=== PATIENT | male | born 1935 | race Caucasian/White ===

== ENCOUNTER → 2016-07-25 | Outpatient (CLI) | payer OTHER ==
[2016-07-25 09:59] LABS: MEAN CELL VOLUME 92.6 fL (80-100); MEAN CORPUSCULAR HEMOGLOBIN 31.3 pg (25-34); MEAN CORPUSCULAR HGB CONC 33.8 g/dl (32-36); MEAN PLATELET VOLUME 10.9 fL (7.4-10.4); PLATELET COUNT 191 K/uL (130-400); RED BLOOD COUNT 4.32 M/uL (4.7-6.1); WHITE BLOOD COUNT 7.16 K/uL (4.8-10.8)
[2016-07-25 10:49] LABS: BLOOD UREA NITROGEN 24 mg/dl (7-18); BUN/CREATININE RATIO 15.7 (10-20); CALCIUM 9.2 mg/dl (8.5-10.1); CARBON DIOXIDE 29 mmol/L (21-32); CHLORIDE 104 mmol/L (98-107); GLUCOSE 104 mg/dl (70-99); POTASSIUM 4.7 mmol/L (3.5-5.1); SODIUM 140 mmol/L (136-145)
== END | disposition home or self-care (01) ==
LOC: C.LAB 09:16
PROVIDERS: ATTEND Internal Medicine
DX: N18.3 Chronic kidney disease, stage 3 (moderate) (principal)

== ENCOUNTER → 2016-08-08 | Outpatient (CLI) | payer OTHER ==
--- NOTE | 2016-08-08 12:22 | DIAGNOSTIC IMAGING REPORT ---
RENAL ULTRASOUND HISTORY: CHRONIC RENAL INSUFFICIENCY STAGE 3 COMPARISON: Abdominal aortic ultrasound 01/09/2016. FINDINGS: Right kidney: 11.0 cm. No hydronephrosis. There is increased cortical echogenicity. Mild cortical thinning/lobulation. There are few cysts with the largest measuring 1.8 cm. Left kidney: 11.4 cm. No hydronephrosis. There is increased cortical echogenicity. Moderate cortical thinning/lobulation. There are few cysts with the largest measuring 4.6 cm. A 4.1 cm cyst within the upper pole the left kidney demonstrates internal echoes. Bladder: No bladder wall thickening. The bilateral ureteral jets were identified. No significant change in the 4.2 cm distal abdominal aortic aneurysm. IMPRESSION: 1. No hydronephrosis. 2. Increased cortical echogenicity bilaterally suggestive of medical renal disease. 3. Bilateral renal cysts the majority of which appear to be simple. A 4.1 cm cyst within the upper pole of the left kidney demonstrates internal echoes. Six-month to one year ultrasound follow-up is recommended to ensure stability. 4. No significant change in the 4.2 cm distal abdominal aortic aneurysm. Electronically signed by: Sabino Casanova M.D. 08/08/2016 12:21 PM Dictated Date/Time: 08/08/2016 12:17 PM
== END | disposition home or self-care (01) ==
LOC: C.ULTR 10:46
PROVIDERS: ATTEND Internal Medicine
DX: N18.3 Chronic kidney disease, stage 3 (moderate) (principal)

== ENCOUNTER → 2016-11-26 | Outpatient (CLI) | payer OTHER ==
[2016-11-26 09:44] LABS: ESTIMATED AVERAGE GLUCOSE 120 mg/dl; HA1C FLAG Normal (Normal)
[2016-11-26 09:52] LABS: BLOOD UREA NITROGEN 25 mg/dl (7-18); BUN/CREATININE RATIO 15.8 (10-20); CARBON DIOXIDE 27 mmol/L (21-32); CHLORIDE 108 mmol/L (98-107); CHOLESTEROL 132 mg/dl (0-200); GLUCOSE 114 mg/dl (70-99); POTASSIUM 4.6 mmol/L (3.5-5.1); SODIUM 142 mmol/L (136-145); TRIGLYCERIDES 100 mg/dl (0-150); VERY LOW DENSITY LIPOPROT CALC 20 mg/dl
[2016-11-26 09:54] LABS: CALCIUM 9.2 mg/dl (8.5-10.1)
[2016-11-26 10:04] LABS: CHOLESTEROL/HDL RATIO 3.4; FERRITIN 72.9 ng/ml (8.0-388.0); HDL CHOLESTEROL 39 mg/dl; LDL CHOLESTEROL CALCULATED 73 mg/dl; PHOSPHORUS 2.7 mg/dl (2.5-4.9); TOTAL IRON BINDING CAPACITY 320 mcg/dl (250-450)
--- NOTE | 2016-12-03 14:27 | CODING QUERY MEDICAL NECESSITY ---
CQSUPPORTING DIAGNOSIS NEEDED A supporting diagnosis is required for the test/procedure performed on this patient in order for us to be reimbursed by the patient's insurance. Please provide a supporting diagnosis for the following test/procedure listed below next to the test name along with your signature. *If there is no additional diagnosis for this patient that would support the following test/procedure please document that below next to the test/procedure. Test(s)/Procedure(s) that require a supporting diagnosis: CHICHI 11/26/16 GLYCATED HEMOGLOBIN TEST Provider Signature: Date: Thank you Gretta Pope [facility] Information Management Once completed, please kindly fax back to [phone] For questions please call [phone]
== END | disposition home or self-care (01) ==
LOC: C.LAB 08:41
PROVIDERS: ATTEND Internal Medicine
DX: N18.3 Chronic kidney disease, stage 3 (moderate) (principal); D64.9 Anemia, unspecified; E03.9 Hypothyroidism, unspecified; E11.65 Type 2 diabetes mellitus with hyperglycemia

== ENCOUNTER → 2017-03-31 | Outpatient (CLI) | payer OTHER ==
[2017-03-31 12:36] LABS: BLOOD UREA NITROGEN 16 mg/dl (7-18); BUN/CREATININE RATIO 10.8 (10-20); CALCIUM 9.6 mg/dl (8.5-10.1); CARBON DIOXIDE 27 mmol/L (21-32); CHLORIDE 105 mmol/L (98-107); GLUCOSE 114 mg/dl (70-99); POTASSIUM 4.5 mmol/L (3.5-5.1); SODIUM 139 mmol/L (136-145)
== END | disposition home or self-care (01) ==
LOC: C.LAB 11:01
PROVIDERS: ATTEND Internal Medicine
DX: N18.3 Chronic kidney disease, stage 3 (moderate) (principal)

== ENCOUNTER → 2017-04-09 | Outpatient (CLI) | payer OTHER | END | disposition home or self-care (01) | LOC: C.LAB 10:18 | PROVIDERS: ATTEND Internal Medicine | DX: E03.8 Other specified hypothyroidism (principal) ==

== ENCOUNTER → 2017-08-04 | Outpatient (CLI) | payer OTHER ==
--- NOTE | 2017-08-04 12:03 | DIAGNOSTIC IMAGING REPORT ---
RETROPERITONEAL COMPLETE CLINICAL HISTORY: 1 YR F/U - RECHECK KIDNEY CYST COMPARISON STUDY: Renal ultrasound August 08, 2016. FINDINGS: The right kidney measures 10.6 cm in maximal dimension and the left measures 10.9 cm. There is moderate renal cortical thinning. Several bilateral renal cysts are noted. These represent simple cysts. There are no suspicious renal lesions by sonography. The cysts measure up to 4.4 cm. Both ureteral jets were identified. There was no hydronephrosis. Note is again made of an infrarenal paraortic aneurysm which measures approximately 3.5 cm. This has not significantly changed. IMPRESSION: 1. No significant change in multiple bilateral renal cysts. No suspicious renal lesions by sonography. 2. No change in a 3.5 cm infrarenal abdominal aortic aneurysm. Electronically signed by: Daniel St M.D. 08/04/2017 12:02 PM Dictated Date/Time: 08/04/2017 11:59 AM
== END | disposition home or self-care (01) ==
LOC: C.ULTR 10:43
PROVIDERS: ATTEND Internal Medicine
DX: N28.1 Cyst of kidney, acquired (principal); I71.4 Abdominal aortic aneurysm, without rupture

== ENCOUNTER → 2017-08-10 | Outpatient (CLI) | payer OTHER ==
[2017-08-10 09:48] LABS: HEMOGLOBIN A1C 5.9 % (4.5-5.6)
[2017-08-10 09:52] LABS: BLOOD UREA NITROGEN 25 mg/dl (7-18); CALCIUM 8.3 mg/dl (8.5-10.1); CARBON DIOXIDE 27 mmol/L (21-32); CHOLESTEROL 113 mg/dl (0-200); CREATININE 1.37 mg/dl (0.60-1.40); GLUCOSE 118 mg/dl (70-99); POTASSIUM 4.7 mmol/L (3.5-5.1); SODIUM 140 mmol/L (136-145)
[2017-08-10 09:55] LABS: LDL CHOLESTEROL CALCULATED 55 mg/dl
== END | disposition home or self-care (01) ==
LOC: C.LAB 08:23
PROVIDERS: ATTEND Internal Medicine
DX: E11.9 Type 2 diabetes mellitus without complications (principal); E78.5 Hyperlipidemia, unspecified

== ENCOUNTER 2020-06-28 17:54 | Inpatient (IN) ==
[2020-06-28 19:01] LABS: Basophils # (auto) 0.01 K/uL (0-0.2); Basophils % (auto) 0.1 %; Eosinophils # (auto) 0.14 K/uL (0-0.5); Eosinophils % (auto) 1.6 %; Hemoglobin 12.5 g/dL (14.0-18.0); Immature Granulocytes # (auto) 0.01 K/uL (0.00-0.02); Immature Granulocytes % (auto) 0.1 %; Lymphocytes # (auto) 1.47 K/uL (1.2-3.4); Lymphocytes % (auto) 17.2 %; Mean Corpuscular Hemoglobin 31.2 pg (25-34); Mean Corpuscular Hgb Conc 32.9 g/dL (32-36); Mean Corpuscular Volume 94.8 fL (80-100); Mean Platelet Volume 10.7 fL (7.4-10.4); Monocytes # (auto) 0.91 K/uL (0.11-0.59); Monocytes % (auto) 10.6 %; Neutrophils # (auto) 6.03 K/uL (1.4-6.5); Neutrophils % (auto) 70.4 %; Platelet Count 163 K/uL (130-400); RDW Coefficient of Variation 14.8 % (11.5-14.5); RDW Standard Deviation 51.7 fL (36.4-46.3); Red Blood Count 4.01 M/uL (4.7-6.1); White Blood Count 8.57 K/uL (4.8-10.8)
--- NOTE | 2020-06-28 19:02 | XRay Report ---
LEFT KNEE 2 VIEWS HISTORY: Left knee pain. fall COMPARISON: None. FINDINGS: There is no fracture or dislocation. No significant knee effusion. Moderate vascular calcif ications are noted. Significant anterior soft tissue swelling. Moderate cartilage space narrowing wit hin the medial compartment of the knee. No radiopaque foreign bodies. IMPRESSION: 1. No fracture or dislocation within the left knee. 2. Anterior soft tissue swelling. ACT 112: Negative or not required by law. Electronically signed by: Sabino Casanova M.D. 06/28/2020 7:01 PM
--- NOTE | 2020-06-28 19:03 | XRay Report ---
XR ankle LT min 3V routine CLINICAL HISTORY: fall. Left ankle pain. COMPARISON STUDY: None. FINDINGS: Diffuse soft tissue swelling. No fracture or dislocation. The ankle mortise is maintained. IMPRESSION: No fracture or dislocation within the left ankle. ACT 112: Negative or not required by law. Electronically signed by: Sabino Casanova M.D. 06/28/2020 7:02 PM
[2020-06-28] MEDS ORDERED: cefTRIAXone SODIUM 1,000 MG/50 ML BAG IV STA (19:06)
--- NOTE | 2020-06-28 19:14 | Emergency Department Note ---
Impression & Plan Cellulitis, Fall, Head injury, Contusion of knee, left, Elevated INR ED Provider Note NAME: CLAUDINE CUEVAS AGE: 84 SEX: M : 1935 ARRIVES VIA: Walk-In INFORMANT: Patient, ED PROVIDER(S): Chadd Contreras DO CHIEF COMPLAINT: Knee pain HPI: The patient is an 84-year-old male who does take blood thinners who presented to the emergency department because of left knee pain. The patient states that he fell out of bed yesterday morning. He struck his left knee and his left ankle. He also states that he struck his head and has a "lump" on the right side of his head as well as behind his left ear. He did not have a loss o f consciousness. He does not have any headache nausea or vomiting. He denies having any neck or chest pain. He does complain of left knee pain. He struck his left knee on the floor. The patient also complains of left ankle pain. He has been able to ambulate but with significant pain. He denies having any hip pain. The patient was not seen by his primary care physician. He has been putting triple antibiotic ointment on the area and cleaning it with Betadine but started noticing worsening swelling pain and blistering of the knee. For this reason he presented to the emergency department today. He denies having any fever. The patient states the pain is moderate at this time and worsens with any ambulation. ROS: See above HPI for pertinent positives & negatives. A total of 10 systems reviewed and were otherwise negative. PAST MEDICAL HISTORY: See Below PAST SURGICAL HISTORY: See Below FAMILY HISTORY: See Below SOCIAL HISTORY: See Below HOME MEDICATIONS: See Below ALLERGIES: See Below VITALS: See Below PHYSICAL EXAMINATION: GENERAL: Patient is awake alert in no acute distress patient is resting comfortably and showing no signs of anxiety EYES: The conjunctivae are clear. The pupils are round and reactive. EARS, NOSE, MOUTH AND THROAT: The nose is without any evidence of any deformity. Mucous membranes are moist. Tongue is midline. NECK: The neck is nontender and supple. RESPIRATORY: Normal respiratory effort is noted there is no evidence of wheezing rhonchi or rales CARDIOVASCULAR: Regular rate and rhythm noted there no murmurs rubs or gallops normal S1 normal S2. GASTROINTESTINAL: The abdomen is soft. Abdomen is nontender. MUSCULOSKELETAL/EXTREMITIES: There is significant ecchymosis and pretibial swelling on the left knee. Range of motion appears intact. There is no deformity. There is also significant blistering over the left knee with some oozing noted. There is significant erythema surrounding the area of ecchymosis. It extends into the left groin. SKIN: Pedal edema was noted bilaterally. Skin is warm and dry. Pulses are symmetric in both feet. NEUROLOGIC: Patient is awake alert and oriented x3. MEDICAL DECISION MAKING: The patient is an 84-year-old male who presented to the emergency department for left knee pain. The patient had a fall onto his left side yesterday morning out of his bed. He sustained a small abrasion to the knee. He states that he has been able to ambulate but over the course of the last 24 hours he has noticed worsening ecchymosis and swelling. Initially clean the area with Betadine but then put triple antibiotic ointment to the area. He was treated with IV antibiotics in the emergency department. X-ray did not reveal any gas in the joint or in the subcutaneous tissue. He was not found have any signs of fracture. Patient also had CT of the head and neck. Laboratory studies were reviewed with the patient. His INR was found to be supratherapeutic. Because of the patient's extent of cellulitis over the knee joint and into the left thigh I will discuss his case with the on-call [facility] hospitalist. Triage Nursing notes reviewed. Prior medical records reviewed Vital Signs: reviewed and remarkable for no significant abnormalities Differential diagnosis: Fracture, subluxation, dislocation, contusion, ligamentous injury, neurovascular, compartment syndrome, rhabdomyolysis, as well as other pathologies. ER treatment provided: See below Diagnostics interpreted by me: ECG: none Cardiac Monitoring: An order was placed for continuous cardiac monitoring. The monitor shows a rate of 88 bpm with atrial fibrillation rhythm. Laboratory studies: As stated above and show below. Imaging studies: See below Consultation(s): I discussed this case with Dr. Joseph. He will evaluate the patient in the emergency department. Past Med/Surg History Medical History Abnormal chest x-ray Allergic rhinitis COPD with emphysema Ex-smoker Hemoptysis ILD (interstitial lung disease) Morbid obesity Multiple pulmonary nodules Family History Other Cancer Social History Smoking Status: Former smoker Preferred Language: Maltese Feels Safe at Home: Yes Allergies Allergies Allergy/AdvReac Type Severity Reaction Status Date / Time No Known Allergies Allergy Verified 06/28/20 19:04 Home Meds Home Medications Medication Instructions Recorded Confirmed aspirin 81 mg tablet,delayed 81 mg PO QPM 12/08/19 06/28/20 release furosemide 20 mg tablet 20 mg PO QAM 12/08/19 06/28/20 nitroglycerin 0.4 mg sublingual 0.4 mg SL Q5M PRN 12/08/19 06/28/20 tablet quinapril 20 mg tablet 20 mg PO QPM 12/08/19 06/28/20 rosuvastatin 20 mg tablet 20 mg PO QPM 12/08/19 06/28/20 vit C 250 mg-E 200 unit-zinc 40 1 tab PO QPM cap 12/08/19 06/28/20 mg-copper 1 [id number]-dkfcch capsule isosorbide mononitrate 60 mg PO QPM 06/28/20 06/28/20 warfarin 2 mg PO WK 06/28/20 06/28/20 warfarin 4 mg PO [id number] 06/28/20 06/28/20 Previous Rx's Medication Instructions Recorded levocetirizine 5 mg tablet 5 mg PO DAILY PRN #30 tab 12/09/19 albuterol sulfate 90 mcg/actuation 2 puff INHALATION Q6H PRN #18 g 03/08/20 aerosol inhaler fluticasone propionate 50 1 spray INTNAS DAILY #16 g 03/08/20 mcg/actuation nasal spray,suspension Results & Data (ED) Vital Signs Vital Signs - 24 hr 06/28/20 17:58 06/28/20 19:43 Temperature 36.9 C Temperature Source Oral Pulse Rate 100 H Pulse Rate [Apical] 88 Respiratory Rate 20 18 Respiratory Effort / Characteristics Non-Labored Spontaneous Non-Labored Respiratory Depth Normal Blood Pressure 151/94 H Blood Pressure [Left Arm] 132/67 Blood Pressure Mean 113 Blood Pressure Mean [Left Arm] 88 Blood Pressure Position Sitting Pulse Oximetry 95 93 Oxygen Delivery Method Room Air Room Air Sepsis Recent Fever Within 48 Hours No Sepsis New/Unexplained Change in Mental Status No Sepsis Action Taken by Nursing No Action Required Home Medications Current Medication List: was personally reviewed by me Laboratory Data Attestation: I reviewed the patient's lab results. Result diagrams: 06/28/20 18:43 06/28/20 18:43 Lab Results 06/28/20 06/28/20 06/28/20 Range/Units 18:43 18:43 18:43 WBC 8.57 (4.8-10.8) K/uL RBC 4.01 L (4.7-6.1) M/uL Hgb 12.5 L (14.0-18.0) g/dL Hct 38.0 L (42-52) % MCV 94.8 (80-100) fL MCH 31.2 (25-34) pg MCHC 32.9 (32-36) g/dL RDW Std Deviation 51.7 H (36.4-46.3) fL RDW Coeff of Geo 14.8 H (11.5-14.5) % Plt Count 163 (130-400) K/uL MPV 10.7 H (7.4-10.4) fL Immature Gran % (Auto) 0.1 % Neut % (Auto) 70.4 % Lymph % (Auto) 17.2 % Wharton % (Auto) 10.6 % Eos % (Auto) 1.6 % Baso % (Auto) 0.1 % Neut # (Auto) 6.03 (1.4-6.5) K/uL Lymph # (Auto) 1.47 (1.2-3.4) K/uL Wharton # (Auto) 0.91 H (0.11-0.59) K/uL Eos # (Auto) 0.14 (0-0.5) K/uL Baso # (Auto) 0.01 (0-0.2) K/uL Immature Gran # (Auto) 0.01 (0.00-0.02) K/uL ESR 20 H (0-14) mm/hr PT 43.3 H (9.0-12.0) Seconds INR 4.4 H (0.9-1.1) APTT 51.4 H* (21.0-31.0) Seconds PTT Ratio 1.8 Sodium (136-145) mmol/L Potassium (3.5-5.1) mmol/L Chloride (98-107) mmol/L Carbon Dioxide (21-32) mmol/L Anion Gap (3-11) BUN (7-18) mg/dl Creatinine (0.6-1.4) mg/dl Est Cr Clr Drug Dosing ml/min Est GFR ( Amer) Est GFR (Non-Af Amer) BUN/Creatinine Ratio (10-20) Glucose (70-99) mg/dl Calcium (8.5-10.1) mg/dl Total Bilirubin (0.2-1) mg/dl AST (15-37) U/L ALT (12-78) U/L Alkaline Phosphatase (45-117) U/L C-Reactive Protein (0-0.29) mg/dl Total Protein (6.4-8.2) gm/dl Albumin (3.4-5.0) gm/dl Globulin (2.5-4.0) gm/dl Albumin/Globulin Ratio (0.9-2) Procalcitonin (0-0.5) ng/ml 06/28/20 06/28/20 Range/Units 18:43 18:43 WBC (4.8-10.8) K/uL RBC (4.7-6.1) M/uL Hgb (14.0-18.0) g/dL Hct (42-52) % MCV (80-100) fL MCH (25-34) pg MCHC (32-36) g/dL RDW Std Deviation (36.4-46.3) fL RDW Coeff of Geo (11.5-14.5) % Plt Count (130-400) K/uL MPV (7.4-10.4) fL Immature Gran % (Auto) % Neut % (Auto) % Lymph % (Auto) % Wharton % (Auto) % Eos % (Auto) % Baso % (Auto) % Neut # (Auto) (1.4-6.5) K/uL Lymph # (Auto) (1.2-3.4) K/uL Wharton # (Auto) (0.11-0.59) K/uL Eos # (Auto) (0-0.5) K/uL Baso # (Auto) (0-0.2) K/uL Immature Gran # (Auto) (0.00-0.02) K/uL ESR (0-14) mm/hr PT (9.0-12.0) Seconds INR (0.9-1.1) APTT (21.0-31.0) Seconds PTT Ratio Sodium 138 (136-145) mmol/L Potassium 4.4 (3.5-5.1) mmol/L Chloride 106 (98-107) mmol/L Carbon Dioxide 29 (21-32) mmol/L Anion Gap 3.0 (3-11) BUN 22 H (7-18) mg/dl Creatinine 1.50 H (0.6-1.4) mg/dl Est Cr Clr Drug Dosing 47.6 ml/min Est GFR ( Amer) 49.5 Est GFR (Non-Af Amer) 42.7 BUN/Creatinine Ratio 14.4 (10-20) Glucose 114 H (70-99) mg/dl Calcium 8.6 (8.5-10.1) mg/dl Total Bilirubin 0.8 (0.2-1) mg/dl AST 14 L (15-37) U/L ALT 20 (12-78) U/L Alkaline Phosphatase 65 (45-117) U/L C-Reactive Protein 2.02 H (0-0.29) mg/dl Total Protein 7.1 (6.4-8.2) gm/dl Albumin 3.6 (3.4-5.0) gm/dl Globulin 3.5 (2.5-4.0) gm/dl Albumin/Globulin Ratio 1.0 (0.9-2) Procalcitonin < 0.05 (0-0.5) ng/ml Administered Medications Discontinued Medications Cephalexin HCl (Cephalexin 500mg Home Pack) 1 homepack PO NOW ONE Stop: 06/28/20 19:44 Last Admin: 06/28/20 20:15 Dose: Not Given Documented by: [id number] Ceftriaxone Sodium (Rocephin) 1,000 mg in 50 mls @ 100 mls/hr IV NOW STA Stop: 06/28/20 19:35 Last Infusion: 06/28/20 20:15 Dose: 0 mls/hr Documented by: [id number] Admin: 06/28/20 19:45 Dose: 100 mls/hr Documented by: [id number] Imaging Data Radiologist's Impression: Patient: CLAUDINE CUEVAS Admit Date: 06/28/20 MR#: [id number] Address1: [address] Acct ID:[id number] Address2: [facility] Date: 1935 [facility] Zip: [place] [address] Age: 84 Location: ED Sex: M Room/Bed: Att Phy: Diagnosis: FELL OUT OF BED Vidya Phy: [facility] Service Date: 06/28/20 [facility] Phy: Interpreting Phy: Sabino Casanova MD Admit Phy: Ordering Phy: Chadd Contreras DO cc: ~ LEFT KNEE 2 VIEWS HISTORY: Left knee pain. fall COMPARISON: None. FINDINGS: There is no fracture or dislocation. No significant knee effusion. Moderate vascular calcifications are noted. Significant anterior soft tissue swelling. Moderate cartilage space narrowing within the medial compartment of the knee. No radiopaque foreign bodies. IMPRESSION: 1. No fracture or dislocation within the left knee. 2. Anterior soft tissue swelling. ACT 112: Negative or not required by law. Electronically signed by: Sabino Casanova M.D. 06/28/2020 7:01 PM Dictated: 06/28/201856 Transcribed: 06/28/201856 Patient: CLAUDINE CUEVAS Admit Date: 06/28/20 MR#: [id number] Address1: [address] Acct ID:[id number] Address2: [facility] Date: 1935 [facility] Zip: [place] [address] Age: 84 Location: ED Sex: M Room/Bed: Att Phy: Diagnosis: FELL OUT OF BED Vidya Phy: Erin Stover Service Date: 06/28/20 [facility] Phy: Interpreting Phy: Sabino Casanova MD Admit Phy: Ordering Phy: Chadd Contreras DO cc: ~ HEAD CT NONCONTRAST CT DOSE: 1584.49 mGy.cm HISTORY: Fall. TECHNIQUE: Multiaxial CT images of the head were performed without the use of intravenous contrast. Automated exposure control was utilized for this study. A dose lowering technique was utilized adhering to the principles of ALARA. Comparison: None. Findings: The paranasal sinuses and mastoid air cells are clear. The calvarium and skull base are intact. There is no mass, hematoma, midline shift, acute infarct. White matter hypodensity is nonspecific but suggestive of microvascular ischemic change. The ventricles and sulci demonstrate mild age-related involutional changes. Mild right posterior scalp swelling. Impression: No acute intracranial abnormality. Mild right posterior scalp swelling. ACT 112: Negative or not required by law. Electronically signed by: Sabino Casanova M.D. 06/28/2020 7:15 PM Dictated: 06/28/201909 Transcribed: 06/28/201909 Patient: CLAUDINE CUEVAS Admit Date: 06/28/20 MR#: [id number] Address1: [address] Acct ID:[id number] Address2: [facility] Date: 1935 [facility] Zip: [place] [address] Age: 84 Location: ED Sex: M Room/Bed: Att Phy: Diagnosis: FELL OUT OF BED Vidya Phy: Erin Stover Service Date: 06/28/20 Fam Phy: Interpreting Phy: Sabino Casanova MD Admit Phy: Ordering Phy: Chadd Contreras DO cc: ~ CERVICAL SPINE CT CT DOSE: HISTORY: fall TECHNIQUE: Multiaxial CT images of the cervical spine were performed and ref ormatted in the sagittal and coronal plane without the use of contrast. A dose lowering technique was utilized adhering to the principles of ALARA. COMPARISON: None. FINDINGS: No fractures. No subluxation. Prevertebral soft tissues and the C1-C2 interval are intact. No pneumothorax. Mild disc space narrowing at C3-C4 and C5- C6. Severe disc space narrowing at C6-C7. IMPRESSION: No fractures within the cervical spine. ACT 112: Negative or not required by law. Electronically signed by: Sabino Casanova M.D. 06/28/2020 7:20 PM Dictated: 06/28/201914 Transcribed: 06/28/201914 Patient: CLAUDINE CUEVAS Admit Date: 06/28/20 MR#: [id number] Address1: [address] Acct ID:[id number] Address2: [place] Date: 1935 [facility] Zip: [place] [address] Age: 84 Location: ED Sex: M Room/Bed: Att Phy: Diagnosis: FELL OUT OF BED Vidya Phy: Erin Stover Service Date: 06/28/20 [facility] Phy: Interpreting Phy: Sabino Casanova MD Admit Phy: Ordering Phy: Chadd Contreras, DO cc: ~ XR ankle LT min 3V routine CLINICAL HISTORY: fall. Left ankle pain. COMPARISON STUDY: None. FINDINGS: Diffuse soft tissue swelling. No fracture or dislocation. The ankle mortise is maintained. IMPRESSION: No fracture or dislocation within the left ankle. ACT 112: Negative or not required by law. Electronically signed by: Sabino Casanova M.D. 06/28/2020 7:02 PM Dictated: 06/28/201900 Transcribed: 06/28/201900 Blood Pressure Blood Pressure Findings: Normal blood pressure Discharge Plan Visit Data Chief Complaint: Fall Stated Complaint: FELL OUT OF BED ED Provider: Chadd Contreras Discharge Problem: Cellulitis, Fall, Head injury, Contusion of knee, left, Elevated INR Patient Disposition: Being Evaluated by Hospitalist Condition: Good Forms Stand Alone Forms: My [facility] [place] [facility] [employer] Prescriptions Prescriptions: No Action PreserVision AREDS-2 [id number] kg-bhsv-nq-mg capsule 1 tab PO QPM RF: 0 aspirin [Adult Low Dose Aspirin] 81 mg tablet,delayed release (DR/EC) 81 mg PO QPM RF: 0 nitroglycerin 0.4 mg tablet, sublingual 0.4 mg SL Q5M PRN (Reason: Chest Pain) RF: 0 quinapril 20 mg tablet 20 mg PO QPM RF: 0 rosuvastatin [Crestor] 20 mg tablet 20 mg PO QPM RF: 0 furosemide 20 mg tablet 20 mg PO QAM RF: 0 levocetirizine 5 mg tablet 5 mg PO DAILY PRN (Reason: allergy symptoms) Qty: 30 RF: 2 albuterol sulfate 90 mcg/actuation HFA aerosol inhaler 2 puff inhalation Q6H PRN (Reason: Shortness Of Breath Or Wheezing) Qty: 18 RF: 3 fluticasone propionate [Allergy Relief (fluticasone)] 50 mcg/actuation spray,suspension 1 spray INTNAS DAILY Qty: 16 RF: 2 warfarin 4 mg tablet 4 mg PO 6XWK RF: 0 isosorbide mononitrate 60 mg tablet extended release 24 hr 60 mg PO QPM RF: 0 warfarin 2 mg tablet 2 mg PO WK RF: 0 Referrals Referrals: Barney Zapata [Primary Care Provider] - Discharge Problem: Cellulitis Qualifiers: Site of cellulitis: extremity Site of cellulitis of extremity: lower extremity Laterality: left Qualified Code(s): L03.116 - Cellulitis of left lower limb Fall Qualifiers: Encounter type: initial encounter Qualified Code(s): W19.XXXA - Unspecified fall, initial encounter Head injury Qualifiers: Encounter type: initial encounter Qualified Code(s): S09.90XA - Unspecified injury of head, initial encounter Contusion of knee, left Qualifiers: Encounter type: initial encounter Qualified Code(s): S80.02XA - Contusion of left knee, initial encounter
--- NOTE | 2020-06-28 19:16 | CT Scan Report ---
HEAD CT NONCONTRAST CT DOSE: 1584.49 mGy.cm HISTORY: Fall. TECHNIQUE: Multiaxial CT images of the head were performed without the use of intravenous contrast. A utomated exposure control was utilized for this study. A dose lowering technique was utilized adheri ng to the principles of ALARA. Comparison: None. Findings: The paranasal sinuses and mastoid air cells are clear. The calvarium and skull base are int act. There is no mass, hematoma, midline shift, acute infarct. White matter hypodensity is nonspecifi c but suggestive of microvascular ischemic change. The ventricles and sulci demonstrate mild age-rela laure involutional changes. Mild right posterior scalp swelling. Impression: No acute intracranial abnormality. Mild right posterior scalp swelling. ACT 112: Negative or not required by law. Electronically signed by: Sabino Casanova M.D. 06/28/2020 7:15 PM
[2020-06-28 19:19] LABS: Albumin Level 3.6 gm/dl (3.4-5.0); BUN Creatinine Ratio 14.4 (10-20); Calcium 8.6 mg/dl (8.5-10.1); Creatinine Clr Calc Pharmacy 47.6 ml/min; Est GFR (African American) 49.5; Est GFR (Non-African American) 42.7; Potassium 4.4 mmol/L (3.5-5.1)
[2020-06-28 19:21] LABS: INR 4.4 (0.9-1.1); Partial Thromboplastin Ratio 1.8; Prothrombin Time 43.3 Seconds (9.0-12.0)
--- NOTE | 2020-06-28 19:21 | CT Scan Report ---
CERVICAL SPINE CT CT DOSE: HISTORY: fall TECHNIQUE: Multiaxial CT images of the cervical spine were performed and reformatted in the sagittal and coronal plane without the use of contrast. A dose lowering technique was utilized adhering to th e principles of ALARA. COMPARISON: None. FINDINGS: No fractures. No subluxation. Prevertebral soft tissues and the C1-C2 interval are intact. No pneumothorax. Mild disc space narrowing at C3-C4 and C5-C6. Severe disc space narrowing at C6-C7. IMPRESSION: No fractures within the cervical spine. ACT 112: Negative or not required by law. Electronically signed by: Sabino Casanova M.D. 06/28/2020 7:20 PM
[2020-06-28 19:22] LABS: Bilirubin,Total 0.8 mg/dl (0.2-1); C Reactive Protein 2.02 mg/dl (0-0.29); Globulin 3.5 gm/dl (2.5-4.0); Total Protein 7.1 gm/dl (6.4-8.2)
[2020-06-28 19:42] LABS: Partial Thromboplastin Time 51.4 Seconds (21.0-31.0)
[2020-06-28] MEDS ORDERED: cephALEXin 500MG HOME PACK PO ONE (19:43)
[2020-06-28] MEDS ORDERED: ONDANSETRON INJ 2 MG/ML 2 ML VIAL IV PRN (20:56)
[2020-06-28] MEDS ORDERED: MELATONIN 3 MG TAB PO PRN (20:56)
[2020-06-28] MEDS ORDERED: ALBUT/IPRATROP 3MG/0.5MG NEB 3 ML VIAL NEB PRN (21:47)
--- NOTE | 2020-06-28 21:57 | History & Physical Report ---
Date of Service June 28, 2020 Assessment & Plan (1) Cellulitis: Manuel Tomas is an 84 yo male with h/o ILD, mulitiple pulmonary nodules, COPD w/ emphysema, chronic a-fib (on Warfarin, no rate-control), CKD stage III (baseline Cr 1.4-1.5), CAD with stable angina, HTN and HLD who presented to [facility] ED one day after falling out of bed and sustaining a left knee abrasion. 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 of surrounding warmt h/erythema/edema - several intact bullae on left knee near abrasion and at area of most severe ecchymosis - XR left knee w/o evidence of fracture or subcutaneous/intra-articular emphysema - hemodynamically stable without current suspicion for sepsis - suspect LLE cellulitis after knee abrasion, suspect bullae 2/2 trauma (friction blisters) - received Rocephin 1g IV x1 in the ED, will continue with broad gram-positive IV abx coverage (including MRSA) with Daptomycin 500mg IV daily - follow blood cultures and wound cultures, adjust abx as necessary - PRN Tylenol for pain - wound care consult - fall precautions - trend CBC daily Chronic Atrial Fibrillation - takes Warfarin 4mg PO 6x per week and 2mg PO once per week (Mondays) - INR 4.4 (supratherapeutic) - no signs of active bleeding - will hold Warfarin for today - trend PT/INR in the AM, plan to re-start home Warfarin if therapeutic Elevated PTT - suspect vitamin K deficiency (2/2 diet) vs hemophilia - trend PTT in the AM - suspect that this will improve with well-balanced diet in the hospital HLD - held home Crestor due to interaction with Daptomycin (increases serum concentration) CKD Stage III - baseline Cr 1.4-1.5, 1.5 today - trend BMP daily CAD/Stable Angina - continue home meds: Imdur ER 60mg PO QPM, Aspirin 81mg PO QPM, Lasix 20mg PO QAM HTN - continue home Quinapril 20mg PO QPM ILD/COPD/Emphysema - PRN Duo nebs ordered Head Injury - also 2/2 recent fall - CT head showed soft tissue swelling w/o intracranial bleed - PRN Tylenol for pain, as mentioned above - follow clinically for changes FEN/GI: heart-healthy DVT Prophylaxis: no pharmacologic therapy ordered at this time given elevated PT/PTT/INR Code Status: DNR/DNI Disposition: Med/surg, plan for d/c back to [facility] once deemed medically stable (2) Contusion of knee, left: (3) Head injury: (4) Elevated INR: (5) ILD (interstitial lung disease): (6) COPD with emphysema: (7) Multiple pulmonary nodules: (8) Chronic atrial fibrillation: Admission and Anticipated Discharge Date Admission Date: 06/28/2020 History of Present Illness Chief Complaint: left knee pain Primary Care Provider: [facility] Manuel Tomas is an 84 yo male with h/o ILD, mulitiple pulmonary nodules, COPD w/ emphysema, chronic a-fib (on Warfarin, no rate-control), CKD stage III (baseline Cr 1.4-1.5), CAD with stable angina, HTN and HLD who presented to [facility] ED one day after falling out of bed and sustaining a left knee abrasion. The patient reports having a nightmare and subsequently falling out of bed yesterday morning and hit his left knee as well as left side of head on the floor. Denies LOC or serious head trauma. Sustained a left knee abrasion from the fall - cleaned the area with Betadine and applied triple antibiotic ointment but reports that there was significant bruising over the knee as well as rapidly developing surrounding warmth/redness/swelling. Patient has been able to ambulate but with increasing difficulty. This morning the patient noticed several fluid-filled blisters on his left knee. Does report mild-moderate left ankle pain which he thinks was likely 2/2 fall as well. Also reports decreased appetite - has not eaten anything since breakfast but denies N/V. Denies headache or increased swelling on the left side of his head. Denies other pain/trauma, denies fever/chills, fatigue, shortness of breath, chest pain, abdominal pain, weakness. Patient reports taking all home medications regularly, as prescribed. Denies previous issues with supratherapeutic INR. 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 Denies recent falls or issues with ambulation. In the ED, patient was given Rocephin 1g IV x1. Left knee XR did not show signs of subcutaneous or intra-articular gas, no signs of fracture. CT head/neck was done as well which showed no intracranial hematoma/hemorrhage and no c-spine fractures. INR was found to be 4.4 and PTT was 51.4. Allergies Allergy/AdvReac Type Severity Reaction Status Date / Time No Known Allergies Allergy Verified 06/28/20 19:04 Home Medications Medication Instructions Recorded Confirmed Type aspirin 81 mg tablet,delayed 81 mg PO QPM 12/08/19 06/28/20 History release furosemide 20 mg tablet 20 mg PO QAM 12/08/19 06/28/20 History nitroglycerin 0.4 mg sublingual 0.4 mg SL Q5M PRN 12/08/19 06/28/20 History tablet quinapril 20 mg tablet 20 mg PO QPM 12/08/19 06/28/20 History rosuvastatin 20 mg tablet 20 mg PO QPM 12/08/19 06/28/20 History vit C 250 mg-E 200 unit-zinc 40 1 tab PO QPM cap 12/08/19 06/28/20 History mg-copper 1 [id number] capsule levocetirizine 5 mg tablet 5 mg PO DAILY PRN #30 tab 12/09/19 06/28/20 Rx albuterol sulfate 90 mcg/actuation 2 puff INHALATION Q6H PRN #18 g 03/08/20 06/28/20 Rx aerosol inhaler fluticasone propionate 50 1 spray INTNAS DAILY #16 g 03/08/20 06/28/20 Rx mcg/actuation nasal spray,suspension isosorbide mononitrate 60 mg PO QPM 06/28/20 06/28/20 History warfarin 2 mg PO WK 06/28/20 06/28/20 History warfarin 4 mg PO 6XWK 06/28/20 06/28/20 History Past Med/Surg History Medical History Abnormal chest x-ray Allergic rhinitis COPD with emphysema Ex-smoker Hemoptysis ILD (interstitial lung disease) Morbid obesity Multiple pulmonary nodules Family History Other Cancer Social History Smoking Status: Former smoker Second Hand Exposure: No; Do You Dip or Chew Tobacco: No; Tobacco Cessation Education Requested by Patient: No Hx Alcohol Use: Yes Alcohol type: wine Hx Substance Use: No Preferred Language: Danish 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 Beliefs That Will Affect Care: None Current Living Situation: Spouse Current Living Situation Comment: Independent Living Facility at [facility] Other Information That Helps Us Care for You: No Feels Safe at Home: Yes Assistive Devices: Walker Review of Systems Constitutional: no fever, no chills, no body aches and no fatigue Eyes: no worsening vision Ear, Nose, Mouth, Throat: no hearing loss Respiratory: no cough and no dyspnea Cardiovascular: no chest pain and no palpitations Gastrointestinal: no abdominal pain, no nausea and no vomiting Genitourinary: no dysuria Integumentary: + rash (bruising and redness on left knee/thigh) Neurologic: no generalized weakness, no numbness and no syncope Physical Exam Constitutional: WD/WN, vitals as above + obese Eyes: PERRL, conjunctivae normal, anicteric sclerae Respiratory: normal respiratory effort, lungs clear to auscultation Gastrointestinal (Abdomen): normal bowel sounds, soft, nontender, no hepatosplenomegaly Skin: left knee abrasion with significant ecchymoses, edema and mild serous/bloody drainage, as well as several overlying bullae (intact). Surrounding erythematous/edematous rash extending from upper medial thigh to ~6 inches below the knee - area is significantly TTP and warm. No purulent drainage, no crepitus, no red streaking. Psychiatric: A+Ox3, euthymic affect Results & Data Results & Data ([facility]) Vital Signs (Past 12 Hours) Vital Signs Temp Pulse Pulse Resp BP BP Pulse Ox 06/28/20 19:43 88 18 132/67 93 06/28/20 17:58 36.9 C 100 H 20 151/94 H 95 Laboratory Results CBC WNL PT 43.3, INR 4.4, PTT 51.4 Cr 1.5, BUN 22, otherwise BMP WNL LFTs WNL CRP 2.02, ESR <.05, Procalcitonin <.05 Diagnostic Findings XR Left Knee: No fracture or dislocation within the left knee, anterior soft tissue swelling CT Head w/o contrast: No acute intracranial abnormality. Mild right posterior scalp swelling. Medications Administered Ceftriaxone 1g IV x1 Code Status & VTE Plan Code Status DNR/DNI VTE Prophylaxis Plan VTE Prophylaxis will be ordered: No Reason for no VTE drug order: Treatment not indicated Supervising Physician Co-Signing Physician Notes Attending addendum: I have physically seen this patient, have supervised the medical residents activities, and agree with the H&P unless as otherwise noted. Assessment and Plan: Left lower extremity cellulitis- Initiated by left knee abrasion status post fall 1 day prior to arrival Placed on daptomycin IV and ceftriaxone IV. Follow wound cultures and blood cultures. Consult wound care Atrial fibrillation/CAD/hypertension- Hold warfarin this morning for supratherapeutic INR 4.4, and follow PT/INR daily Continue Imdur 60 mg every evening, aspirin 81 mg every evening, quinapril 20 mg every evening, and furosemide 20 mg p.o. every morning CKD stage III- Creatinine 1.5 today, with baseline 1.4-1.5. Follow labs serially Remaining orders and notations as noted Resident Activity Tracking Resident Involvement: Resident Care Provided Care Provided: Adult Hospital Medicine (1) Cellulitis Laterality: left Site of cellulitis: extremity Site of cellulitis of extremity: lower extremity Qualified Code(s): L03.116 - Cellulitis of left lower limb (2) Head injury Encounter type: initial encounter Qualified Code(s): S09.90XA - Unspecified injury of head, initial encounter (3) Contusion of knee, left Encounter type: initial encounter Qualified Code(s): S80.02XA - Contusion of left knee, initial encounter
[2020-06-28] MEDS ORDERED: NITROGLYCERIN SL 0.4 MG/TAB TAB SL PRN (22:20)
[2020-06-28] MEDS ORDERED: ASPIRIN 81 MG ECTAB PO SCH (22:20)
[2020-06-28] MEDS ORDERED: DAPTOmycin 350 MG in SYRINGE 0 ML IV SCH (23:00)
[2020-06-28] MEDS: ROSUVASTATIN CALCIUM 20 MG TAB PO SCH (23:31)
[2020-06-28] MEDS: ISOSORBIDE MONO EXTENDED REL 60 MG TABCR PO SCH (23:31)
[2020-06-28] MEDS: ENALAPRIL MALEATE 10 MG TAB PO SCH (23:31)
[2020-06-29 06:00] LABS: Basophils # (auto) 0.01 K/uL (0-0.2); Basophils % (auto) 0.1 %; Eosinophils # (auto) 0.14 K/uL (0-0.5); Eosinophils % (auto) 1.7 %; Hematocrit (blood only) 33.8 % (42-52); Hemoglobin 11.1 g/dL (14.0-18.0); Immature Granulocytes # (auto) 0.01 K/uL (0.00-0.02); Immature Granulocytes % (auto) 0.1 %; Lymphocytes # (auto) 1.42 K/uL (1.2-3.4); Lymphocytes % (auto) 17.6 %; Mean Corpuscular Hemoglobin 31.1 pg (25-34); Mean Corpuscular Hgb Conc 32.8 g/dL (32-36); Mean Corpuscular Volume 94.7 fL (80-100); Mean Platelet Volume 10.5 fL (7.4-10.4); Monocytes % (auto) 14.9 %; Neutrophils # (auto) 5.27 K/uL (1.4-6.5); Neutrophils % (auto) 65.6 %; Platelet Count 162 K/uL (130-400); RDW Coefficient of Variation 14.8 % (11.5-14.5); RDW Standard Deviation 51.2 fL (36.4-46.3); Red Blood Count 3.57 M/uL (4.7-6.1); White Blood Count 8.05 K/uL (4.8-10.8)
[2020-06-29 06:16] LABS: Partial Thromboplastin Ratio 2.2; Prothrombin Time 48.6 Seconds (9.0-12.0)
[2020-06-29 06:28] LABS: BUN Creatinine Ratio 16.1 (10-20); Calcium 8.2 mg/dl (8.5-10.1); Est GFR (African American) 57.8; Est GFR (Non-African American) 49.9; Magnesium 2.3 mg/dl (1.8-2.4); Partial Thromboplastin Time 60.9 Seconds (21.0-31.0); Phosphorus 2.7 mg/dl (2.5-4.9); Potassium 3.9 mmol/L (3.5-5.1)
[2020-06-29] MEDS: ACETAMINOPHEN 325 MG TAB PO PRN ×3 (07:54→23:24)
[2020-06-29] MEDS ORDERED: cefTRIAXone SODIUM 2,000 MG in DEXTROSE 5% 50 ML IV SCH (09:30)
[2020-06-29] MEDS: FUROSEMIDE 20 MG TAB PO SCH (09:34)
[2020-06-29] MEDS: cefTRIAXone SODIUM 2,000 MG in DEXTROSE 5% 50 ML IV SCH (09:53)
--- NOTE | 2020-06-29 13:30 | Hospitalist Progress Note ---
Date of Service June 29, 2020 Assessment & Plan (1) Cellulitis: Manuel Tomas is an 84 yo male with h/o ILD, mulitiple pulmonary nodules, COPD w/ emphysema, chronic a-fib (on Warfarin, no rate-control), CKD stage III (baseline Cr 1.4-1.5), CAD with stable angina, HTN and HLD who presented to [facility] ED one day after falling out of bed and sustaining a left knee abrasion. 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 Will discontinue daptomycin as patient does not have particular risk factors for MRSA and will continue Rocephin, his wound culture is not growing any bacteria - Wound culture no growth, blood culture ngtd - PRN Tylenol for pain - wound care consult - fall precautions - trend CBC daily - COVID negative Chronic Atrial Fibrillation - takes Warfarin 4mg PO 6x per week and 2mg PO once per week (Mondays) - INR 4.4 (supratherapeutic) on admission, 5 today - hold warfarin - large area of hematoma over knee but otherwise no signs of bleeding Elevated PTT - suspect vitamin K deficiency (2/2 diet) - PTT somewhat higher today - suspect that this will improve with well-balanced diet in the hospital - recheck coags am HLD - held home Crestor due to interaction with Daptomycin (increases serum concentration) - can resume on discharge CKD Stage III - baseline Cr 1.4-1.5, 1.32 today - trend BMP daily CAD/Stable Angina - continue home meds: Imdur ER 60mg PO QPM, Lasix 20mg PO QAM - will hold aspirin in setting of hematoma and elevated ptt HTN - continue home Quinapril 20mg PO QPM ILD/COPD/Emphysema - PRN Duo nebs ordered Head Injury - also 2/2 recent fall - CT head showed soft tissue swelling w/o intracranial bleed - PRN Tylenol for pain, as mentioned above - follow clinically for changes - patient alert and oriented, converses appropriately today FEN/GI: heart-healthy DVT Prophylaxis: no pharmacologic therapy ordered at this time given elevated PT/PTT/INR Code Status: DNR/DNI Disposition: Med/surg, plan for d/c back to [facility] once deemed medically stable (2) Contusion of knee, left: (3) Head injury: (4) Elevated INR: (5) ILD (interstitial lung disease): (6) COPD with emphysema: (7) Multiple pulmonary nodules: (8) Chronic atrial fibrillation: Admission and Anticipated Discharge Date Admission Date: June 28, 2020 Subjective Mr. Tomas's leg is feeling better, he has more mobility. The redness around his knee has decreased. He has some pain with manipulation of his leg but is overall comfortable. No paresthesias. He was able to ambulate the gallegos with walker and assistance of nursing. Review of Systems Constitutional: no fever, no chills and no body aches Respiratory: no cough and no dyspnea Cardiovascular: no chest pain and no palpitations Gastrointestinal: no abdominal pain, no nausea and no vomiting Genitourinary: no dysuria and no urinary hesitancy Musculoskeletal: no back pain and no joint pain Integumentary: no rash Physical Exam Physical Exam: General: no distress Eyes: normal inspection, PERLL Respiratory: chest non tender, clear to auscultation, normal breath sounds, no respiratory distress, no accessory muscle use Cardiac: regular rate and rhythm, no rub or gallop, no murmur, no edema, no jvd, palpable pedal pulse distal to injury GI/: active bowel sounds, no abd pain or tenderness, soft, non distended Extremities: normal range of motion, normal strength, non tender, skin is soft - no areas of taught skin Neuro/Psych: alert and oriented x 3, normal mood and affect Skin: normal color, dry, significantly reduced area of erythema from line of demarcation, area of swelling behind left ear from fall Results & Data Results & Data ([facility]) Vital Signs (Past 12 Hours) Vital Signs Temp Pulse Resp BP Pulse Ox 06/29/20 07:35 36.8 C 95 H 20 116/68 91 PG Care Time/CCT Total # of Minutes Spent Total Time Spent with Patient: Total time spent is greater than 50% in coordination of care (as documented) at patient's floor/unit and/or counseling patient: Coding Level of Care Code 50716 Subseq Hosp Care Lvl 3 Diagnoses Cellulitis L03.116 Laterality: left Site of cellulitis: extremity Site of cellulitis of extremity: lower extremity Contusion of knee, left S80.02XA Encounter type: initial encounter Head injury S09.90XA Encounter type: initial encounter Elevated INR R79.1 ILD (interstitial lung disease) J84.9 COPD with emphysema J43.9 Multiple pulmonary nodules R91.8 Chronic atrial fibrillation I48.20 (1) Cellulitis Laterality: left Site of cellulitis: extremity Site of cellulitis of extremity: lower extremity Qualified Code(s): L03.116 - Cellulitis of left lower limb (2) Contusion of knee, left Encounter type: initial encounter Qualified Code(s): S80.02XA - Contusion of left knee, initial encounter (3) Head injury Encounter type: initial encounter Qualified Code(s): S09.90XA - Unspecified injury of head, initial encounter
[2020-06-29] MEDS ORDERED: WARFARIN SOD 4 MG TAB PO SCH (16:00)
[2020-06-29] MEDS: DOXYCYCLINE HYCLATE 100 MG in DEXTROSE 5% 100 ML IV SCH (18:10)
[2020-06-29] MEDS: ENALAPRIL MALEATE 10 MG TAB PO SCH (20:30)
[2020-06-29] MEDS: ISOSORBIDE MONO EXTENDED REL 60 MG TABCR PO SCH (20:30)
[2020-06-29] MEDS: ROSUVASTATIN CALCIUM 20 MG TAB PO SCH (20:30)
[2020-06-30] MEDS: DOXYCYCLINE HYCLATE 100 MG in DEXTROSE 5% 100 ML IV SCH (04:16)
[2020-06-30] MEDS: ACETAMINOPHEN 325 MG TAB PO PRN ×2 (04:26→09:25)
--- NOTE | 2020-06-30 06:19 | Billing Data ---
Date of Service June 30, 2020 Coding Level of Care Code 16055 Initial Inpt Care Lvl 3
[2020-06-30 07:45] LABS: Basophils # (auto) 0.02 K/uL (0-0.2); Basophils % (auto) 0.2 %; Eosinophils # (auto) 0.15 K/uL (0-0.5); Eosinophils % (auto) 1.6 %; Hematocrit (blood only) 34.1 % (42-52); Hemoglobin 11.3 g/dL (14.0-18.0); Immature Granulocytes # (auto) 0.02 K/uL (0.00-0.02); Immature Granulocytes % (auto) 0.2 %; Lymphocytes % (auto) 18.2 %; Mean Corpuscular Hemoglobin 31.5 pg (25-34); Mean Corpuscular Hgb Conc 33.1 g/dL (32-36); Mean Platelet Volume 10.5 fL (7.4-10.4); Monocytes % (auto) 13.9 %; Neutrophils # (auto) 6.15 K/uL (1.4-6.5); Neutrophils % (auto) 65.9 %; Platelet Count 158 K/uL (130-400); RDW Standard Deviation 52.2 fL (36.4-46.3); Red Blood Count 3.59 M/uL (4.7-6.1); White Blood Count 9.34 K/uL (4.8-10.8)
[2020-06-30 08:08] LABS: BUN Creatinine Ratio 12.7 (10-20); Calcium 8.5 mg/dl (8.5-10.1); Creatinine Clr Calc Pharmacy 47.8 ml/min; Est GFR (African American) 49.9; Est GFR (Non-African American) 43.1
[2020-06-30 08:09] LABS: INR 2.2 (0.9-1.1); Partial Thromboplastin Ratio 1.8; Prothrombin Time 22.5 Seconds (9.0-12.0)
[2020-06-30 09:02] LABS: Partial Thromboplastin Time 49.3 Seconds (21.0-31.0)
[2020-06-30] MEDS: FUROSEMIDE 20 MG TAB PO SCH (09:20)
[2020-06-30] MEDS: cefTRIAXone SODIUM 2,000 MG in DEXTROSE 5% 50 ML IV SCH (09:27)
--- NOTE | 2020-06-30 09:36 | Hospitalist Progress Note ---
Date of Service June 30, 2020 Assessment & Plan Admission and Anticipated Discharge Date Admission Date: June 28, 2020 Results & Data Results & Data ([facility]) Vital Signs (Past 12 Hours) Vital Signs Temp Pulse Resp BP Pulse Ox 06/30/20 07:35 36.5 C 110 H 16 119/75 94 06/30/20 04:28 36.6 C 06/29/20 23:14 36.4 C 114 H 20 109/64 92 Laboratory Results 06/30/20 06/30/20 06/30/20 Range/Units 07:27 07:27 07:27 WBC 9.34 (4.8-10.8) K/uL RBC 3.59 L (4.7-6.1) M/uL Hgb 11.3 L (14.0-18.0) g/dL Hct 34.1 L (42-52) % MCV 95.0 (80-100) fL MCH 31.5 (25-34) pg MCHC 33.1 (32-36) g/dL RDW Std Deviation 52.2 H (36.4-46.3) fL RDW Coeff of Geo 15.0 H (11.5-14.5) % Plt Count 158 (130-400) K/uL MPV 10.5 H (7.4-10.4) fL Immature Gran % (Auto) 0.2 % Neut % (Auto) 65.9 % Lymph % (Auto) 18.2 % [place] % (Auto) 13.9 % Eos % (Auto) 1.6 % Baso % (Auto) 0.2 % Neut # (Auto) 6.15 (1.4-6.5) K/uL Lymph # (Auto) 1.70 (1.2-3.4) K/uL [place] # (Auto) 1.30 H (0.11-0.59) K/uL Eos # (Auto) 0.15 (0-0.5) K/uL Baso # (Auto) 0.02 (0-0.2) K/uL Immature Gran # (Auto) 0.02 (0.00-0.02) K/uL PT 22.5 H (9.0-12.0) Seconds INR 2.2 H (0.9-1.1) APTT 49.3 H* (21.0-31.0) Seconds PTT Ratio 1.8 Sodium 136 (136-145) mmol/L Potassium 4.0 (3.5-5.1) mmol/L Chloride 104 (98-107) mmol/L Carbon Dioxide 27 (21-32) mmol/L Anion Gap 5.0 (3-11) BUN 19 H (7-18) mg/dl Creatinine 1.49 H (0.6-1.4) mg/dl Est Cr Clr Drug Dosing 47.8 ml/min Est GFR ( Amer) 49.9 Est GFR (Non-Af Amer) 43.1 BUN/Creatinine Ratio 12.7 (10-20) Glucose 128 H (70-99) mg/dl Calcium 8.5 (8.5-10.1) mg/dl PG Care Time/CCT Total # of Minutes Spent Total Time Spent with Patient: Total time spent is greater than 50% in coordination of care (as documented) at patient's floor/unit and/or counseling patient: Coding
--- NOTE | 2020-06-30 11:19 | Discharge Summary ---
Date of Service June 30, 2020 Admission HPI Per Admitting Provider Manuel Tomas is an 84 yo male with h/o ILD, mulitiple pulmonary nodules, COPD w/ emphysema, chronic a-fib (on Warfarin, no rate-control), CKD stage III (baseline Cr 1.4-1.5), CAD with stable angina, HTN and HLD who presented to [facility] ED one day after falling out of bed and sustaining a left knee abrasion. The patient reports having a nightmare and subsequently falling out of bed yesterday morning and hit his left knee as well as left side of head on the floor. Denies LOC or serious head trauma. Sustained a left knee abrasion from the fall - cleaned the area with Betadine and applied triple antibiotic ointment but reports that there was significant bruising over the knee as well as rapidly developing surrounding warmth/redness/swelling. Patient has been able to ambulate but with increasing difficulty. This morning the patient noticed several fluid-filled blisters on his left knee. Does report mild-moderate left ankle pain which he thinks was likely 2/2 fall as well. Also reports decreased appetite - has not eaten anything since breakfast but denies N/V. Denies headache or increased swelling on the left side of his head. Denies other pain/trauma, denies fever/chills, fatigue, shortness of breath, chest pain, abdominal pain, weakness. Patient reports taking all home medications regularly, as prescribed. Denies previous issues with supratherapeutic INR. 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 Denies recent falls or issues with ambulation. In the ED, patient was given Rocephin 1g IV x1. Left knee XR did not show signs of subcutaneous or intra-articular gas, no signs of fracture. CT head/neck was done as well which showed no intracranial hematoma/hemorrhage and no c-spine fractures. INR was found to be 4.4 and PTT was 51.4. Admission Exam Per Admitting Provider Constitutional: WD/WN, vitals as above + obese Eyes: PERRL, conjunctivae normal, anicteric sclerae Respiratory: normal respiratory effort, lungs clear to auscultation Gastrointestinal (Abdomen): normal bowel sounds, soft, nontender, no hepatosplenomegaly Skin: left knee abrasion with significant ecchymoses, edema and mild serous/bloody drainage, as well as several overlying bullae (intact). Surrounding erythematous/edematous rash extending from upper medial thigh to ~6 inches below the knee - area is significantly TTP and warm. No purulent drainage, no crepitus, no red streaking. Psychiatric: A+Ox3, euthymic affect Principal Diagnosis Lower Extremity Cellulitis Discharge Exam Constitutional WD/WN, vitals as above + obese; no acute distress Eyes + anicteric sclerae; no eyelid abnormality ENMT mmm Neck normal visual inspection and trachea midline Respiratory normal respiratory effort, lungs clear to auscultation Cardiovascular Rate/Rhythm: + irregularly irregular Vessels: no JVD Extremities: normal capillary refill Gastrointestinal (Abdomen) normal bowel sounds, soft, nontender, no hepatosplenomegaly Musculoskeletal erythema within markings, well receded. ecchymosis and small hematoma mild swelling/tenderness to palpation area of drainage covered with 4x4. dressing with minimal drainage no evidence of abscess Skin warm, dry Neurologic PERRL, EOMI, accommodation nl, no face palsy, no dysarthria Psychiatric A+Ox3, euthymic affect Lymphatic no cervical or axillary lymphadenopathy Discharge Data Allergies Allergy/AdvReac Type Severity Reaction Status Date / Time No Known Allergies Allergy Verified 06/28/20 19:04 Consultations 06/28/20 20:09 ED Decision to Admit Stat Ordered Studies 06/28/20 18:18 CT cervical spine wo con Stat CT head/brain wo con Stat Hospital Course (1) Cellulitis: Manuel Tomas is an 84 yo male with h/o ILD, mulitiple pulmonary nodules, COPD w/ emphysema, chronic a-fib (on Warfarin, no rate-control), CKD stage III (baseline Cr 1.4-1.5), CAD with stable angina, HTN and HLD who presented to [facility] ED one day after falling out of bed and sustaining a left knee abrasion. 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 Will discontinue daptomycin as patient does not have particular risk factors for MRSA and will continue Rocephin, his wound culture is not growing any bacteria - Wound culture no growth, blood culture ngtd - PRN Tylenol for pain - wound care consulted -- to be evaluated at the [facility] and they will determine if he should have formal referral to wound care outpatient - COVID negative -- blood counts remained stable --> Discharged on Doxy/Keflex for 10 days-- can be extended given improvement/further evaluation by PCP in next week Chronic Atrial Fibrillation - takes Warfarin 4mg PO 6x per week and 2mg PO once per week (Mondays) - INR 4.4 (supratherapeutic) on admission, but within normal limits prior to d/c - large area of hematoma over knee but otherwise no signs of bleeding - Resumed warfarin at discharge and will need repeat INR in next 2 days to make sure no adjustments need made while on abx therapy Elevated PTT - suspect vitamin K deficiency (2/2 diet) - suspect that this will improve with well-balanced diet in the hospital - recheck coags am with improvement -- adhere to AHA diet at discharge recomended HLD - held home Crestor due to interaction with Daptomycin (increases serum concentration) - resumed on discharge CKD Stage III - baseline Cr 1.4-1.5, currently Cr 1.49 CAD/Stable Angina - continued home meds: Imdur ER 60mg PO QPM, Lasix 20mg PO QAM - Held ASA in setting of hematoma and elevated ptt but resumed at d/c HTN - continued home Quinapril 20mg PO QPM ILD/COPD/Emphysema - PRN Duo nebs ordered Head Injury - also 2/2 recent fall - CT head showed soft tissue swelling w/o intracranial bleed - PRN Tylenol for pain, as mentioned above - follow clinically for changes - patient alert and oriented, converses appropriately FEN/GI: heart-healthy DVT Prophylaxis: no pharmacologic therapy ordered at this time given elevated INR. Coumadin resumed at discharge Code Status: DNR/DNI Disposition: Med/surg, plan for d/c back to [facility] today (2) Contusion of knee, left: (3) Head injury: (4) Elevated INR: (5) ILD (interstitial lung disease): (6) COPD with emphysema: (7) Multiple pulmonary nodules: (8) Chronic atrial fibrillation: Total Time Total Time Spent Total Time Spent (In Minutes): 70 Discharge Plan Discharge Items Patient Disposition: Home - Self-Care Reason For Visit: LLE CELLULITIS Discharge Diagnosis: LLE Cellulitis Condition on Discharge: Good Goals: You have been hospitalized for an acute medical problem. During your stay at [facility], we have made an effort to correct the problem that brought you to the hospital while keeping you as comfortable as possible. Medications were used to bring your condition under control and your discharge instructions will include directions for any medications you should take after leaving the hospital. Please make sure you see your Primary Care Provider as part of your follow up plan. Activity: Resume your previous activity Non-emergency contact: Primary Care Provider Call non-emergency contact if: you have any medication questions, your symptoms worsen and your pain is worsening Follow-up/Referrals: Jolanta Khan [Primary Care Provider] - Diet: Heart Healthy Ambulatory Orders: Prothrombin Time INR (Timed) Timeframe: 2 Days Location: Determined by Patient Ordered By: Akiko Villaseñor Attending Provider Instructions: You have been hospitalized for a lower extremity cellulitis secondary to fall/abrasion. Imaging was taken which did not show infection to the bone, but rather localized cellulitis. You were treated with IV antibiotics and are being discharged on Doxycycline and Keflex to continue for an additional 10 days. Please take these medications as prescribed with a full glass of water to prevent inflammation in your esophagus (rare side effect of esophagitis from doxycycline). You can continue to utilize tylenol as needed for pain. Please do not exceed 3,000mg in a 24 hour period of time. Your INR was elevated on admission and your Coumadin was held. You should have repeat INR in the next 2-3 days to ensure this is still stable and that you do not need any further adjustments while on antibiotics. Your repeat INR today was in normal range at 2.2 and you should continue your Coumadin tonight. You are being arranged with outpatient wound care to monitor your progress. Please keep wound clean/dry and utilize Neosporin for now to keep the area covered. Please make note if redness/swelling does not continue to recede within the markings, or if you experience any worsening pain, please alert your primary care provider immediately. Please follow up with your PCP in the next week to monitor your progress. They may decide to extend your antibiotics if they feel you need continued treatment past the ten days. It has been a pleasure being a part of the medical team providing for you while you have been in the hospital. Take care! Pending Studies at Discharge: Yes Studies:: Blood cultures -- no growth to date Stand-Alone Forms: My [facility] Medications and DC Order Prescriptions: New doxycycline hyclate 100 mg tablet 100 mg PO BID 10 Days Qty: 20 RF: 0 cephalexin [Keflex] 500 mg capsule 500 mg PO QID 10 Days Qty: 40 RF: 0 Continued PreserVision AREDS-2 [id number]-mg capsule 1 tab PO QPM RF: 0 aspirin [Adult Low Dose Aspirin] 81 mg tablet,delayed release (DR/EC) 81 mg PO QPM RF: 0 nitroglycerin 0.4 mg tablet, sublingual 0.4 mg SL Q5M PRN (Reason: Chest Pain) RF: 0 quinapril 20 mg tablet 20 mg PO QPM RF: 0 rosuvastatin [Crestor] 20 mg tablet 20 mg PO QPM RF: 0 furosemide 20 mg tablet 20 mg PO QAM RF: 0 levocetirizine 5 mg tablet 5 mg PO DAILY PRN (Reason: allergy symptoms) Qty: 30 RF: 2 albuterol sulfate 90 mcg/actuation HFA aerosol inhaler 2 puff inhalation Q6H PRN (Reason: Shortness Of Breath Or Wheezing) Qty: 18 RF: 3 fluticasone propionate [Allergy Relief (fluticasone)] 50 mcg/actuation spray,suspension 1 spray INTNAS DAILY Qty: 16 RF: 2 warfarin 4 mg tablet 4 mg PO 6XWK RF: 0 isosorbide mononitrate 60 mg tablet extended release 24 hr 60 mg PO QPM RF: 0 warfarin 2 mg tablet 2 mg PO WK RF: 0 Discharge Orders: Discharge Order (Routine); Ordered 06/30/20 Ordered By: Akiko Hughes/Other Patient Handouts: What to Know When TakingWarfarin, Exercise for a Healthier Heart, Eating Heart-Healthy Foods, International Normalized Ratio, aPTT, Prothrombin Time Admission Data Admit Date/Time: 06/28/20 20:56 Attending Provider: Ronak Webster Admit Provider: Dat Robbins Primary Care Provider: Jolanta Khan Other Providers: Fernando Sheldon Other Interventions: Discharge Summary Assessment (RN) Last Done: 06/30/20 14:18 Coding Level of Care Code D/C Day Management >30 mins Diagnoses Cellulitis L03.116 Laterality: left Site of cellulitis: extremity Site of cellulitis of extremity: lower extremity Contusion of knee, left S80.02XA Encounter type: initial encounter Head injury S09.90XA Encounter type: initial encounter Elevated INR R79.1 ILD (interstitial lung disease) J84.9 COPD with emphysema J43.9 Multiple pulmonary nodules R91.8 Chronic atrial fibrillation I48.20
[2020-07-02] MEDS ORDERED: WARFARIN SOD 2 MG TAB PO SCH (16:00)
== END 2020-06-30 16:00 | disposition home or self-care (01) | DRG 603 ==
LOC: ED 17:54 → SUATTDRO 20:56 → 3N 20:56

== ENCOUNTER 2022-07-01 15:57 | Observation (INO) ==
[2022-07-01 16:27] VITALS: TEMP 97.7
[2022-07-01 17:03] LABS: Basophils # (auto) 0.06 K/uL (0-0.2); Basophils % (auto) 0.8 %; Eosinophils # (auto) 0.09 K/uL (0-0.50); Eosinophils % (auto) 1.2 %; Hematocrit (blood only) 35.9 % (40.1-51.0); Immature Granulocytes # (auto) 0.06 K/uL (0.00-0.02); Immature Granulocytes % (auto) 0.8 %; Lymphocytes # (auto) 1.43 K/uL (1.2-3.4); Lymphocytes % (auto) 19.8 %; Mean Corpuscular Hemoglobin 31.4 pg (25.0-34.0); Mean Corpuscular Hgb Conc 33.4 g/dL (32.0-36.0); Mean Platelet Volume 10.7 fL (9.4-12.4); Monocytes # (auto) 0.86 K/uL (0.24-0.82); Monocytes % (auto) 11.9 %; Neutrophils # (auto) 4.71 K/uL (1.4-6.5); Neutrophils % (auto) 65.5 %; Platelet Count 230 K/uL (130-400); RDW Coefficient of Variation 15.6 % (11.5-14.5); Red Blood Count 3.82 M/uL (4.63-6.08); White Blood Count 7.21 K/ul (4.8-10.8)
--- NOTE | 2022-07-01 17:04 | XRay Report ---
XR chest 1V portable CLINICAL HISTORY: Chest pain, nonspecific TECHNIQUE: Single frontal radiograph of the chest was obtained. Comparison: Comparison is made to chest radiograph 10/14/2021 FINDINGS: No lines and tubes are seen. Cardiomegaly is noted. The aortic arch is calcified. There is elevation of the right hemidiaphragm, similar to prior exam. There may be faint airspace opacity in the left lo wer lung. No evidence of pleural effusion or pneumothorax. IMPRESSION: There is a faint airspace opacity in the left lower lung compatible with atelectasis, pneumonia, and/ or aspiration. ACT 112: Negative or not required by law. Electronically signed by: Guanako Renee M.D. 07/01/2022 5:03 PM
[2022-07-01 17:18] LABS: INR 1.2 (0.9-1.1); Partial Thromboplastin Ratio 1.1; Partial Thromboplastin Time 31.6 Seconds (21.0-31.0); Prothrombin Time 13.1 Seconds (9.0-12.0)
[2022-07-01] MEDS ORDERED: SODIUM CHLORIDE 0.9% 500 ML IV ONE ×2 (17:32→19:08)
[2022-07-01 17:47] LABS: Alanine Aminotransferase 121 U/L (7-52); Albumin Globulin Ratio 1.2 (0.9-2); Albumin Level 3.4 gm/dl (3.4-5.0); Alkaline Phosphatase 328 U/L (34-104); Anion Gap 7 (3-11); Aspartate Aminotransferase 147 U/L (13-39); BUN Creatinine Ratio 13.6 (10-20); Bilirubin,Total 1.3 mg/dl (0.2-1.0); Blood Urea Nitrogen 22 mg/dl (6-23); Carbon Dioxide 31 mmol/L (21-32); Chloride 102 mmol/L (98-107); Est GFR (African American) 44.5 ml/min; Est GFR (Non-African American) 38.4 ml/min; Globulin 2.8 gm/dl (2.5-4.0); Glucose 116 mg/dl (70-99(Fasting)); Potassium 4.3 mmol/L (3.5-5.1); Sodium 140 mmol/L (136-145); Total Protein 6.2 gm/dl (6.0-8.3)
[2022-07-01] MEDS ORDERED: OPTIRAY 350 100ml IV ONE (18:56)
--- NOTE | 2022-07-01 19:41 | CT Scan Report ---
CT abd pelvis IV con only CLINICAL HISTORY: lower abd pain TECHNIQUE: Helical axial images of the abdomen and pelvis were obtained and displayed. Automated dose lowering techniques and/or adjustment according to patient size were utilized for this exam. This e xam was performed with intravenous contrast. CT DOSE: 1197.58 mGy.cm COMPARISON: Comparison is made to CT abdomen pelvis 01/09/2020, PET/CT 12/19/2020, CT chest 01/21/2022 FINDINGS: Lower chest: Trace right pleural effusion is seen. Interstitial thickening is seen with superimposed atelectasis versus consolidation. The pulmonary trunk measures 35 mm in diameter. Liver: Innumerable hypoenhancing hepatic lesions are seen, not well seen on prior exams. Gallbladder and biliary tree: Patient is status post cholecystectomy. No intra- or extrahepatic bilia ry ductal dilation. Pancreas: Unremarkable, no focal lesions. Spleen: Unremarkable. Adrenals: Unremarkable. Kidneys and ureters: Cysts are seen in the bilateral kidneys. Bladder: Diffuse homogeneous wall thickening is seen. Reproductive organs: Unremarkable. Bowel: Diverticulosis is seen without evidence of diverticulitis. The appendix is normal. Lymph nodes Retroperitoneal: Unremarkable. Pelvic: Unremarkable. Mesenteric: Unremarkable. Peritoneum: Normal. Vessels: Atherosclerotic calcifications are seen. An infrarenal aortic aneurysm measures 46 mm in emma meter. Abdominal wall: A fat-containing umbilical hernia is seen. Bones: Degenerative changes in the visualized spine. Grade 3 anterolisthesis is seen of L5-S1 with as sociated pars defects. Scattered bone islands are seen. IMPRESSION: 1. No acute abnormalities are seen to explain abdominal pain. 2. Innumerable hypoenhancing liver masses are seen concerning for metastatic disease in this patient with known primary lung cancer. No additional metastatic foci are seen. 3. Diverticulosis without diverticulitis. 4. Status post cholecystectomy. ACT 112: Negative or not required by law. Electronically signed by: Guanako Renee M.D. 07/01/2022 7:39 PM
[2022-07-01] MEDS ORDERED: METOPROLOL TARTRATE 1 MG/ML VIAL IV STA (20:37)
--- NOTE | 2022-07-01 20:43 | Emergency Department Note ---
History of Present Illness General Chief complaint: Arrhythmia/Palpitations Stated complaint: ABDOMINAL PAIN,DIARRHEA,A FIB Time Seen by Provider: 07/01/22 16:50 Source: patient and family Mode of arrival: EMS Limitations: no limitations History of Present Illness Provider complaint: Abdominal pain, diarrhea, referred by PCP Maximum Pain Intensity: 3 This is an 86-year-old male presents to the ER after being referred by his PCP due to concern for A. fib with RVR, as well as complaints of lower abdominal pain and diarrhea. Patient does have a history of A. fib and states has been well controlled on metoprolol and his blood thinner. He does follow with cardiology routinely. Patient states for the last 3 days he has had intermittent lower abdominal pain and several episodes of diarrhea. He denies noting any blood. Patient states he has been more fatigued recently and has had a decreased appetite, no overt nausea or vomiting. He denies any fevers or chills. Denies any change in medication, known sick contact, recent travel. Home Medications Medication Instructions Recorded Confirmed Type aspirin 81 mg tablet,delayed 81 mg PO QAM 12/08/19 07/01/22 History release (Adult Low Dose Aspirin) nitroglycerin 0.4 mg sublingual 0.4 mg sublingual Q5M PRN Chest 12/08/19 07/01/22 History tablet Pain rosuvastatin 20 mg tablet (Crestor) 20 mg PO QAM 12/08/19 07/01/22 History isosorbide mononitrate 60 mg 60 mg PO QAM 06/28/20 07/01/22 History tablet,extended release 24 hr furosemide 40 mg tablet 40 mg PO DAILY 12/21/20 07/01/22 History apixaban 2.5 mg tablet (Eliquis) 2.5 mg PO BID 01/03/21 07/01/22 History coenzyme Q10 200 mg capsule 400 mg PO DAILY 01/03/21 07/01/22 History levothyroxine 50 mcg capsule 50 mcg PO DAILY 01/03/21 07/01/22 History metoprolol succinate 100 mg 100 mg PO DAILY 01/03/21 07/01/22 History tablet,extended release 24 hr pantoprazole 40 mg tablet,delayed 40 mg PO DAILY 01/03/21 07/01/22 History release B-complex with vitamin C 1 tab PO DAILY 07/01/22 07/01/22 History cholecalciferol (vitamin D3) 50 50 mcg PO DAILY 07/01/22 07/01/22 History mcg (2,000 unit) capsule (Vitamin D3) citalopram 20 mg tablet (Celexa) 20 mg PO DAILY 07/01/22 07/01/22 History dulaglutide 0.75 mg/0.5 mL 0.75 mg subcut WK 07/01/22 07/01/22 History subcutaneous pen injector (Trulicity) guaifenesin 600 mg tablet, 600 mg PO QAM 07/01/22 07/01/22 History extended release 12 hr omega-3 fatty acids-fish oil 360 1 cap PO DAILY 07/01/22 07/01/22 History mg-1,200 mg capsule prednisone 2.5 mg tablet 2.5 mg PO DAILY 07/01/22 07/01/22 History quinapril 5 mg tablet 5 mg PO DAILY 07/01/22 07/01/22 History vit C 250 mg-vit E 90 mg-zinc 40 1 tab PO AMHS 07/01/22 07/01/22 History mg-copper 1 [id number] capsule (PreserVision AREDS-2) Allergies Allergy/AdvReac Type Severity Reaction Status Date / Time No Known Allergies Allergy Verified 07/01/22 18:45 Past Med/Surg History Medical History Abnormal chest x-ray Allergic rhinitis Chronic atrial fibrillation Chronic kidney disease COPD with emphysema Coronary artery disease Ex-smoker Fall Hemoptysis Hyperlipidemia Hypertension Hypothyroidism ILD (interstitial lung disease) Multiple pulmonary nodules Surgical History H/O arthroscopy of knee Right knee H/O hemorrhoidectomy H/O vasectomy History of carotid endarterectomy Hx of cataract surgery both eyes Hx of cholecystectomy Family History Mother , 82yo Hiatal hernia Myocardial infarction During hospitalization for hiatal hernia surgery Father , 90yo Natural with unknown cause Diabetes Myocardial infarction Brother No problems noted. Brother No problems noted. Brother No problems noted. Sister No problems noted. Sister No problems noted. Sister Cancer Pt believes this was brain cancer Son No problems noted. Daughter No problems noted. Daughter No problems noted. 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; Feels Safe at Home: Yes caffeine: Yes (2 cups/day) during the past year weight has: remained stable Assistive Devices: Walker Review of Systems A total of 10 systems reviewed and were otherwise negative All systems reviewed & are unremarkable except as noted in HPI & below Physical Exam Vital Signs Vital Signs - 24 hr 07/01/22 16:23 07/01/22 16:53 07/01/22 16:29 Temperature 36.5 C Temperature Source Oral Pulse Rate 108 H Pulse Rate [Apical] Pulse Rate from SpO2 Sensor Pulse Rhythm Regular Pulse Rhythm [Apical] Pulse Strength Normal Pulse Strength [Apical] Respiratory Rate 14 Respiratory Effort / Characteristics Non-Labored Spontaneous Respiratory Depth Normal Respiratory Pattern Regular Blood Pressure 95/53 L Blood Pressure [Right Arm] Blood Pressure Mean 67 Blood Pressure Mean [Right Arm] Blood Pressure Position Sitting Blood Pressure Position [Right Arm] Pulse Oximetry 95 98 98 Oxygen Delivery Method Nasal Cannula Room Air Room Air Oxygen Flow Rate 2 Sepsis Recent Fever Within 48 Hours No Sepsis New/Unexplained Change in Mental Status No Sepsis Action Taken by Nursing No Action Required 07/01/22 16:57 07/01/22 17:00 07/01/22 17:30 Temperature Temperature Source Pulse Rate 111 H 111 H 116 H Pulse Rate [Apical] Pulse Rate from SpO2 Sensor 90 91 H 109 H Pulse Rhythm Pulse Rhythm [Apical] Pulse Strength Pulse Strength [Apical] Respiratory Rate 20 16 22 Respiratory Effort / Characteristics Respiratory Depth Respiratory Pattern Blood Pressure Blood Pressure [Right Arm] Blood Pressure Mean Blood Pressure Mean [Right Arm] Blood Pressure Position Blood Pressure Position [Right Arm] Pulse Oximetry 97 97 97 Oxygen Delivery Method Oxygen Flow Rate Sepsis Recent Fever Within 48 Hours Sepsis New/Unexplained Change in Mental Status Sepsis Action Taken by Nursing 12/27/22 18:00 07/01/22 18:30 07/01/22 19:00 Temperature Temperature Source Pulse Rate 107 H 115 H Pulse Rate [Apical] 111 H Pulse Rate from SpO2 Sensor 100 H 118 H Pulse Rhythm Pulse Rhythm [Apical] Irregular Pulse Strength Pulse Strength [Apical] Normal Respiratory Rate 18 16 18 Respiratory Effort / Characteristics Non-Labored Respiratory Depth Normal Respiratory Pattern Regular Blood Pressure 146/90 H Blood Pressure [Right Arm] 129/76 Blood Pressure Mean 108 Blood Pressure Mean [Right Arm] 93 Blood Pressure Position Blood Pressure Position [Right Arm] Lying Pulse Oximetry 98 97 98 Oxygen Delivery Method Nasal Cannula Oxygen Flow Rate 2 Sepsis Recent Fever Within 48 Hours Sepsis New/Unexplained Change in Mental Status Sepsis Action Taken by Nursing 07/01/22 20:41 07/01/22 21:00 Temperature Temperature Source Pulse Rate 115 H Pulse Rate [Apical] 115 H Pulse Rate from SpO2 Sensor Pulse Rhythm Pulse Rhythm [Apical] Regular Pulse Strength Pulse Strength [Apical] Normal Respiratory Rate 18 Respiratory Effort / Characteristics Non-Labored Respiratory Depth Normal Respiratory Pattern Regular Blood Pressure 130/90 Blood Pressure [Right Arm] 129/73 Blood Pressure Mean Blood Pressure Mean [Right Arm] 91 Blood Pressure Position Blood Pressure Position [Right Arm] Lying Pulse Oximetry 95 Oxygen Delivery Method Nasal Cannula Oxygen Flow Rate 2 Sepsis Recent Fever Within 48 Hours Sepsis New/Unexplained Change in Mental Status Sepsis Action Taken by Nursing GENERAL: alert, well appearing, well nourished, no distress, non-toxic EYE EXAM: normal conjunctiva, PERRL and EOM's grossly intact OROPHARYNX: no exudate, no erythema, lips, buccal mucosa, and tongue normal and mucous membranes are moist NECK: supple, no nuchal rigidity, no adenopathy, non-tender LUNGS: Clear to auscultation. Normal chest wall mechanics, no w/r/r HEART: no murmurs, S1 normal and S2 normal ABDOMEN: abdomen soft, non-tender, normo-active bowel sounds, no masses, no rebound or guarding. Dull to percussion. BACK: Back is symmetrical on inspection and there is no deformity, no midline tenderness, no CVA tenderness. SKIN: no rashes and no bruising UPPER EXTREMITIES: upper extremities are grossly normal. FROM, nml pulses b/l. LOWER EXTREMITIES: No pitting edema. FROM, nml pulses b/l. NEURO EXAM: Normal sensorium, cranial nerves II-XII grossly intact, normal speech, no gross weakness of arms, no gross weakness of legs. Gross sensation intact. Course Administered Medications Discontinued Medications Sodium Chloride (Nss) 500 mls @ 999 mls/hr IV .Q31M ONE Stop: 07/01/22 18:02 Last Infusion: 07/01/22 18:25 Dose: 0 mls/hr Documented By: Admin: 07/01/22 17:49 Dose: 999 mls/hr Documented By: JUDIE Sodium Chloride (Nss) 500 mls @ 999 mls/hr IV .Q31M ONE Stop: 07/01/22 19:38 Last Infusion: 07/01/22 19:54 Dose: 0 mls/hr Documented By: Admin: 07/01/22 19:23 Dose: 999 mls/hr Documented By: KLAUDIA Ioversol (Optiray 350 100ml) 84 ml IV ONCE ONE Stop: 07/01/22 18:57 Last Admin: 07/01/22 18:56 Dose: 84 ml Documented By: OMKAR Metoprolol Tartrate (Metoprolol Tartrate 1 Mg/Ml Vial) 5 mg IV NOW STA Stop: 07/01/22 20:38 Last Admin: 07/01/22 20:41 Dose: 5 mg Documented By: KLAUDIA Medical Decision Making Differential Diagnosis Differential diagnoses includes but is not limited to gastritis, peptic ulcer disease, GERD, gallbladder disease, pancreatitis, small bowel obstruction, acute coronary syndrome, pericarditis, ischemic bowel, irritable bowel disease, irr itable bowel syndrome, appendicitis, diverticulitis, malignancy, hernia, urinary tract infection, torsion, [/ectopic (if female)], perforation, trauma, infectious. Medical Records Attestation: I reviewed the patient's medical records. Home Medications Current Medication List: was personally reviewed by me Laboratory Data Attestation: I reviewed the patient's lab results. Result diagrams: 07/01/22 16:45 07/01/22 16:45 Lab Results 07/01/22 07/01/22 07/01/22 Range/Units 16:45 16:45 16:45 WBC 7.21 (4.8-10.8) K/ul RBC 3.82 L (4.63-6.08) M/uL Hgb 12.0 L (14.0-18.0) g/dl Hct 35.9 L (40.1-51.0) % MCV 94.0 (80.0-100.0) fL MCH 31.4 (25.0-34.0) pg MCHC 33.4 (32.0-36.0) g/dL RDW Std Deviation 53.0 H (36.4-46.3) fL RDW Coeff of Geo 15.6 H (11.5-14.5) % Plt Count 230 (130-400) K/uL MPV 10.7 (9.4-12.4) fL Immature Gran % (Auto) 0.8 % Neut % (Auto) 65.5 % Lymph % (Auto) 19.8 % Ralls % (Auto) 11.9 % Eos % (Auto) 1.2 % Baso % (Auto) 0.8 % Neut # (Auto) 4.71 (1.4-6.5) K/uL Lymph # (Auto) 1.43 (1.2-3.4) K/uL Ralls # (Auto) 0.86 H (0.24-0.82) K/uL Eos # (Auto) 0.09 (0-0.50) K/uL Baso # (Auto) 0.06 (0-0.2) K/uL Immature Gran # (Auto) 0.06 H (0.00-0.02) K/uL PT 13.1 H (9.0-12.0) Seconds INR 1.2 H (0.9-1.1) APTT 31.6 H (21.0-31.0) Seconds PTT Ratio 1.1 Sodium 140 (136-145) mmol/L Potassium 4.3 (3.5-5.1) mmol/L Chloride 102 (98-107) mmol/L Carbon Dioxide 31 (21-32) mmol/L Anion Gap 7 (3-11) BUN 22 (6-23) mg/dl Creatinine 1.62 H (0.6-1.4) mg/dl Est Cr Clr Drug Dosing Not Reportable Est GFR ( Amer) 44.5 ml/min Est GFR (Non-Af Amer) 38.4 ml/min BUN/Creatinine Ratio 13.6 (10-20) Glucose 116 H (70-99(Fasting)) mg/dl Calcium 10.0 (8.5-10.1) mg/dl Total Bilirubin 1.3 H (0.2-1.0) mg/dl AST 147 H (13-39) U/L ALT 121 H (7-52) U/L Alkaline Phosphatase 328 H (34-104) U/L Troponin I High Sens 17.0 (0-20) pg/ml Total Protein 6.2 (6.0-8.3) gm/dl Albumin 3.4 (3.4-5.0) gm/dl Globulin 2.8 (2.5-4.0) gm/dl Albumin/Globulin Ratio 1.2 (0.9-2) SARS-CoV-2, RNA, NAAT (NEGATIVE) 07/01/22 Range/Units 21:15 WBC (4.8-10.8) K/ul RBC (4.63-6.08) M/uL Hgb (14.0-18.0) g/dl Hct (40.1-51.0) % MCV (80.0-100.0) fL MCH (25.0-34.0) pg MCHC (32.0-36.0) g/dL RDW Std Deviation (36.4-46.3) fL RDW Coeff of Geo (11.5-14.5) % Plt Count (130-400) K/uL MPV (9.4-12.4) fL Immature Gran % (Auto) % Neut % (Auto) % Lymph % (Auto) % Ralls % (Auto) % Eos % (Auto) % Baso % (Auto) % Neut # (Auto) (1.4-6.5) K/uL Lymph # (Auto) (1.2-3.4) K/uL Ralls # (Auto) (0.24-0.82) K/uL Eos # (Auto) (0-0.50) K/uL Baso # (Auto) (0-0.2) K/uL Immature Gran # (Auto) (0.00-0.02) K/uL PT (9.0-12.0) Seconds INR (0.9-1.1) APTT (21.0-31.0) Seconds PTT Ratio Sodium (136-145) mmol/L Potassium (3.5-5.1) mmol/L Chloride (98-107) mmol/L Carbon Dioxide (21-32) mmol/L Anion Gap (3-11) BUN (6-23) mg/dl Creatinine (0.6-1.4) mg/dl Est Cr Clr Drug Dosing Est GFR ( Amer) ml/min Est GFR (Non-Af Amer) ml/min BUN/Creatinine Ratio (10-20) Glucose (70-99(Fasting)) mg/dl Calcium (8.5-10.1) mg/dl Total Bilirubin (0.2-1.0) mg/dl AST (13-39) U/L ALT (7-52) U/L Alkaline Phosphatase (34-104) U/L Troponin I High Sens (0-20) pg/ml Total Protein (6.0-8.3) gm/dl Albumin (3.4-5.0) gm/dl Globulin (2.5-4.0) gm/dl Albumin/Globulin Ratio (0.9-2) SARS-CoV-2, RNA, NAAT NEGATIVE (NEGATIVE) Imaging Data Radiologist's Impression: Chest X-Ray 07/01/22 16:29 XR chest 1V portable CLINICAL HISTORY: Chest pain, nonspecific TECHNIQUE: Single frontal radiograph of the chest was obtained. Comparison: Comparison is made to chest radiograph 10/14/2021 FINDINGS: No lines and tubes are seen. Cardiomegaly is noted. The aortic arch is calcifi ed. There is elevation of the right hemidiaphragm, similar to prior exam. There may be faint airspace opacity in the left lower lung. No evidence of pleural effusion or pneumothorax. IMPRESSION: There is a faint airspace opacity in the left lower lung compatible with atelectasis, pneumonia, and/or aspiration. ACT 112: Negative or not required by law. Electronically signed by: Guanako Renee M.D. 07/01/2022 5:03 PM Abdomen/Pelvis CT 07/01/22 17:33 CT abd pelvis IV con only CLINICAL HISTORY: lower abd pain TECHNIQUE: Helical axial images of the abdomen and pelvis were obtained and displayed. Automated dose lowering techniques and/or adjustment according to patient size were utilized for this exam. This exam was performed with intravenous contrast. CT DOSE: 1197.58 mGy.cm COMPARISON: Comparison is made to CT abdomen pelvis 01/09/2020, PET/CT 12/19/2020, CT chest 01/21/2022 FINDINGS: Lower chest: Trace right pleural effusion is seen. Interstitial thickening is seen with superimposed atelectasis versus consolidation. The pulmonary trunk m easures 35 mm in diameter. Liver: Innumerable hypoenhancing hepatic lesions are seen, not well seen on prior exams. Gallbladder and biliary tree: Patient is status post cholecystectomy. No intra- or extrahepatic biliary ductal dilation. Pancreas: Unremarkable, no focal lesions. Spleen: Unremarkable. Adrenals: Unremarkable. Kidneys and ureters: Cysts are seen in the bilateral kidneys. Bladder: Diffuse homogeneous wall thickening is seen. Reproductive organs: Unremarkable. Bowel: Diverticulosis is seen without evidence of diverticulitis. The appendix is normal. Lymph nodes Retroperitoneal: Unremarkable. Pelvic: Unremarkable. Mesenteric: Unremarkable. Peritoneum: Normal. Vessels: Atherosclerotic calcifications are seen. An infrarenal aortic aneurysm measures 46 mm in diameter. Abdominal wall: A fat-containing umbilical hernia is seen. Bones: Degenerative changes in the visualized spine. Grade 3 anterolisthesis is seen of L5-S1 with associated pars defects. Scattered bone islands are seen. IMPRESSION: 1. No acute abnormalities are seen to explain abdominal pain. 2. Innumerable hypoenhancing liver masses are seen concerning for metastatic disease in this patient with known primary lung cancer. No additional metastatic foci are seen. 3. Diverticulosis without diverticulitis. 4. Status post cholecystectomy. ACT 112: Negative or not required by law. Electronically signed by: Guanako Renee M.D. 07/01/2022 7:39 PM ECG Data Attestation: I personally reviewed and interpreted this ECG as follows: Indication: + other Rate (beats per minute): 120 Rhythm: + atrial fibrillation ECG Intervals/blocks: + Normal QRS and + Normal QT ECG [place]: + Normal ECG ST segments: + Nonspecific ST abnormalities MDM Narrative An order was placed for continuous cardiac monitoring. The monitor shows a rate of _122_ with _a.fib_ rhythm. This is an 86-year-old male presents emergency department after being referred by his PCP due to concern for A. fib with RVR, abdominal pain, and diarrhea. Patient noted to have rapid A. fib here in the 120s. He does have prior history of chronic A. fib and is treated with metoprolol and Eliquis. He admits to intermittent abdominal pain and diarrhea over the last 2 to 3 days. Per accompanying paperwork presented by the son at bedside, his PCP was concerned for the GI symptoms additionally. Patient denied any current pain on my bedside exam. He was otherwise hemodynamically stable and afebrile. Labs been drawn and sent by nursing staff prior to my evaluation. We discussed imaging additionally patient was sent for CT. Patient was given small fluid boluses and did have improvement in his heart rate although was still tachycardic. Patient found to have an abnormal LFTs in addition to a mildly elevated creatinine. I suspect the creatinine elevation compared to his prior is secondary to dehydr ation as well as likely accompanying medications. Patient CT revealed multiple abnormalities of the liver consistent with likely metastatic disease. Patient does have prior history of lung cancer status postradiation. We discussed all lab and imaging results at bedside. We discussed options for disposition. Patient in agreement with plan for additional inpatient evaluation and management. He was given additional IV metoprolol and additional IV fluids. Case discussed with hospitalist for additional evaluation and management. Impression & Plan Abdominal pain, Atrial fibrillation with rapid ventricular response, Diarrhea, Dehydration, Abnormal LFTs Discharge Plan Visit Data Chief Complaint: Arrhythmia/Palpitations Stated Complaint: ABDOMINAL PAIN,DIARRHEA,A FIB ED Provider: Melody Wiley Discharge Problem: Abdominal pain, Atrial fibrillation with rapid ventricular response, Diarrhea, Dehydration, Abnormal LFTs Patient Disposition: Being Evaluated by Hospitalist Forms Stand Alone Forms: My [facility] Prescriptions Prescriptions: No Action Eliquis 2.5 mg tablet 2.5 mg PO BID Rx Instructions: SELF ADMINISTERED pantoprazole 40 mg tablet,delayed release (DR/EC) 40 mg PO DAILY Rx Instructions: SELF ADMINISTERED levothyroxine 50 mcg capsule 50 mcg PO DAILY Rx Instructions: SELF ADMINISTERED metoprolol succinate 100 mg tablet extended release 24 hr 100 mg PO DAILY Rx Instructions: SELF ADMINISTERED coenzyme Q10 200 mg capsule 400 mg PO DAILY Rx Instructions: SELF ADMINISTERED furosemide 40 mg tablet 40 mg PO DAILY Rx Instructions: SELF ADMINISTERED aspirin [Adult Low Dose Aspirin] 81 mg tablet,delayed release (DR/EC) 81 mg PO QAM Rx Instructions: SELF ADMINISTERED nitroglycerin 0.4 mg tablet, sublingual 0.4 mg SL Q5M PRN (Reason: Chest Pain) rosuvastatin [Crestor] 20 mg tablet 20 mg PO QAM Rx Instructions: SELF ADMINISTERED isosorbide mononitrate 60 mg tablet extended release 24 hr 60 mg PO QAM Rx Instructions: SELF ADMINISTERED citalopram [Celexa] 20 mg Tablet 20 mg PO DAILY Rx Instructions: SELF ADMINISTERED prednisone 2.5 mg Tablet 2.5 mg PO DAILY Rx Instructions: SELF ADMINISTERED quinapril 5 mg tablet 5 mg PO DAILY Rx Instructions: SELF ADMINISTERED B-complex with vitamin C [Super B Complex-Vitamin C] Tablet 1 tab PO DAILY Rx Instructions: SELF ADMINISTERED omega-3 fatty acids-fish oil 360-1,200 mg Capsule 1 cap PO DAILY Rx Instructions: SELF ADMINISTERED cholecalciferol (vitamin D3) [Vitamin D3] 50 mcg (2,000 unit) Capsule 50 mcg PO DAILY Rx Instructions: SELF ADMINISTERED PreserVision AREDS-2 250-90-40-1 mg Capsule 1 tab PO AMHS Rx Instructions: SELF ADMINISTERED guaifenesin 600 mg Tablet Extended Release 12hr 600 mg PO QAM Rx Instructions: SELF ADMINISTERED Trulicity 0.75 mg/0.5 mL pen injector 0.75 mg SUBCUT WK Rx Instructions: SELF ADMINISTERED Referrals Referrals: Jolanta Khan [Primary Care Provider] -
[2022-07-01] MEDS ORDERED: ONDANSETRON INJ 2 MG/ML 2 ML VIAL IV PRN (23:51)
[2022-07-01] MEDS ORDERED: ACETAMINOPHEN 325 MG TAB PO PRN (23:51)
[2022-07-02] MEDS ORDERED: NITROGLYCERIN SL 0.4 MG/TAB TAB SL PRN (01:11)
[2022-07-02] MEDS: SODIUM CHLORIDE 0.9% 1000ML 1,000 ML IV SCH ×2 (02:11→14:19)
[2022-07-02] MEDS ORDERED: LEVOTHYROXINE SODIUM 50 MCG TABLET PO SCH (06:30)
[2022-07-02] MEDS ORDERED: GLUCAGON FOR INJ 1 MG VIAL IM PRN (07:00)
[2022-07-02] MEDS ORDERED: DEXTROSE 50% 50 ML SYRINGE IV PRN (07:00)
[2022-07-02] MEDS ORDERED: CARBOHYDRATES FOR HYPOGLYCEMIA PO PRN (07:00)
[2022-07-02] MEDS ORDERED: GLUCOSE 40% GEL 15 GM TUBE PO PRN (07:00)
[2022-07-02] MEDS ORDERED: GLUCOSE 10 TAB/TUBE PO PRN (07:00)
--- NOTE | 2022-07-02 07:44 | History & Physical Report ---
Date of Service July 02, 2022 Assessment & Plan (1) Atrial fibrillation with rapid ventricular response: Plan: pt has aknown history fo afib and presents with a fib and rvr pt given iv fluids and iv metoprolol for rate control check tsh level trend trop (2) MINOR (acute kidney injury): Plan: cr elevated to 1.6 likely sec to volume depletion continue iv fluids and monitor i/o moitor renal function (3) Diarrhea: Plan: ongoing gi losses monitor i/o continue iv fluids (4) Dehydration: Plan: sec to gi losses from diarrhea (5) Liver lesion: Plan: ct abdomen shows multiple lesions consistent wi metastatic type lesions will defer oncology consult to am team as pt also has h/o lung cancer in past (6) Abnormal LFTs: Plan: transaminases elevated AST higher than ALT monitor trend defer gi consult to Am team Admission and Anticipated Discharge Date Admission Date: July 01, 2022 History of Present Illness Chief Complaint: pt presents to ed with abd pain and diarrhea Patient noted to have rapid A. fib with rvr and treated with iv metoprolol for rate control. pt admits to intermittent abdominal pain and diarrhea over the last 2 to 3 days. Patient denies any current pain on my bedside exam. Primary Care Provider: [facility] 86 yr old male with PMHx of htn and hyperlipdemia presents to ED with c/o abd pain and diarrhea . In Ed pt was found to be in a fib and RVR and treated with iv fluids . abd pain reported in the lower quadrant area Allergies Allergy/AdvReac Type Severity Reaction Status Date / Time No Known Allergies Allergy Verified 07/01/22 18:45 Home Medications Medication Instructions Recorded Confirmed Type aspirin 81 mg tablet,delayed 81 mg PO QAM 12/08/19 07/01/22 History release (Adult Low Dose Aspirin) nitroglycerin 0.4 mg sublingual 0.4 mg sublingual Q5M PRN Chest 12/08/19 07/01/22 History tablet Pain rosuvastatin 20 mg tablet (Crestor) 20 mg PO QAM 12/08/19 07/01/22 History isosorbide mononitrate 60 mg 60 mg PO QAM 06/28/20 07/01/22 History tablet,extended release 24 hr furosemide 40 mg tablet 40 mg PO DAILY 12/21/20 07/01/22 History apixaban 2.5 mg tablet (Eliquis) 2.5 mg PO BID 01/03/21 07/01/22 History coenzyme Q10 200 mg capsule 400 mg PO DAILY 01/03/21 07/01/22 History levothyroxine 50 mcg capsule 50 mcg PO DAILY 01/03/21 07/01/22 History metoprolol succinate 100 mg 100 mg PO DAILY 01/03/21 07/01/22 History tablet,extended release 24 hr pantoprazole 40 mg tablet,delayed 40 mg PO DAILY 01/03/21 07/01/22 History release B-complex with vitamin C 1 tab PO DAILY 07/01/22 07/01/22 History cholecalciferol (vitamin D3) 50 50 mcg PO DAILY 07/01/22 07/01/22 History mcg (2,000 unit) capsule (Vitamin D3) citalopram 20 mg tablet (Celexa) 20 mg PO DAILY 07/01/22 07/01/22 History dulaglutide 0.75 mg/0.5 mL 0.75 mg subcut WK 07/01/22 07/01/22 History subcutaneous pen injector (Trulicity) guaifenesin 600 mg tablet, 600 mg PO QAM 07/01/22 07/01/22 History extended release 12 hr omega-3 fatty acids-fish oil 360 1 cap PO DAILY 07/01/22 07/01/22 History mg-1,200 mg capsule prednisone 2.5 mg tablet 2.5 mg PO DAILY 07/01/22 07/01/22 History quinapril 5 mg tablet 5 mg PO DAILY 07/01/22 07/01/22 History vit C 250 mg-vit E 90 mg-zinc 40 1 tab PO AMHS 07/01/22 07/01/22 History mg-copper 1 [id number]-etoeyr-[id number] capsule (PreserVision AREDS-2) Past Med/Surg History Medical History Abnormal chest x-ray Allergic rhinitis Chronic atrial fibrillation Chronic kidney disease COPD with emphysema Coronary artery disease Ex-smoker Fall Hemoptysis Hyperlipidemia Hypertension Hypothyroidism ILD (interstitial lung disease) Multiple pulmonary nodules Surgical History H/O arthroscopy of knee Right knee H/O hemorrhoidectomy H/O vasectomy History of carotid endarterectomy Hx of cataract surgery both eyes Hx of cholecystectomy Family History Mother , 82yo Hiatal hernia Myocardial infarction During hospitalization for hiatal hernia surgery Father , 90yo Natural with unknown cause Diabetes Myocardial infarction Brother No problems noted. Brother No problems noted. Brother No problems noted. Sister No problems noted. Sister No problems noted. Sister Cancer Pt believes this was brain cancer Son No problems noted. Daughter No problems noted. Daughter No problems noted. 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; Other Information That Helps Us Care for You: No Feels Safe at Home: Yes Safety Concerns: Feels Safe At This Time caffeine: Yes (2 cups/day) during the past year weight has: remained stable Assistive Devices: Oxygen - Continuous and Walker Review of Systems Constitutional: + fatigue and + increased appetite Respiratory: as per Subjective / HPI Cardiovascular: Additional Comments: no cp palpitation reported Gastrointestinal: pt reports abd pain and diarrhea Neurologic: no headache Physical Exam Constitutional: cooperative ENMT: suple Respiratory: breathsounds heard normally Neurologic: no focal deficits Results & Data Results & Data ([facility]) Vital Signs (Past 12 Hours) Vital Signs Pulse Pulse Resp BP BP Pulse Ox Pulse Ox 07/02/22 02:53 112 H 19 113/74 98 07/02/22 01:00 97 07/02/22 01:00 119 H 18 125/80 97 07/01/22 23:00 110 H 18 125/78 97 07/01/22 21:00 115 H 18 129/73 95 07/01/22 20:41 115 H 130/90 O2 Del Method O2 Del Method O2 Flow Rate O2 Flow Rate 07/02/22 02:53 Nasal Cannula 2 07/02/22 01:00 Nasal Cannula 2 07/02/22 01:00 Nasal Cannula 2 07/01/22 23:00 Nasal Cannula 2 07/01/22 21:00 Nasal Cannula 2 07/01/22 20:41 Laboratory Results Short CBC 07/01/22 Range/Units 16:45 WBC 7.21 (4.8-10.8) K/ul Hgb 12.0 L (14.0-18.0) g/dl Hct 35.9 L (40.1-51.0) % Plt Count 230 (130-400) K/uL BMP 07/01/22 16:45 Sodium 140 Potassium 4.3 Chloride 102 Carbon Dioxide 31 BUN 22 Creatinine 1.62 H Glucose 116 H Calcium 10.0 Liver Function 07/01/22 Range/Units 16:45 Total Bilirubin 1.3 H (0.2-1.0) mg/dl AST 147 H (13-39) U/L ALT 121 H (7-52) U/L Alkaline Phosphatase 328 H (34-104) U/L Albumin 3.4 (3.4-5.0) gm/dl Diagnostic Findings Chest X-Ray 07/01/22 16:29 XR chest 1V portable CLINICAL HISTORY: Chest pain, nonspecific TECHNIQUE: Single frontal radiograph of the chest was obtained. Comparison: Comparison is made to chest radiograph 10/14/2021 FINDINGS: No lines and tubes are seen. Cardiomegaly is noted. The aortic arch is calcified. There is elevation of the right hemidiaphragm, similar to prior exam. There may be faint airspace opacity in the left lower lung. No evidence of pleural effusion or pneumothorax. IMPRESSION: There is a faint airspace opacity in the left lower lung compatible with atelectasis, pneumonia, and/or aspiration. ACT 112: Negative or not required by law. Electronically signed by: Guanako Renee M.D. 07/01/2022 5:03 PM Abdomen/Pelvis CT 07/01/22 17:33 CT abd pelvis IV con only CLINICAL HISTORY: lower abd pain TECHNIQUE: Helical axial images of the abdomen and pelvis were obtained and displayed. Automated dose lowering techniques and/or adjustment according to patient size were utilized for this exam. This exam was performed with intravenous contrast. CT DOSE: 1197.58 mGy.cm COMPARISON: Comparison is made to CT abdomen pelvis 01/09/2020, PET/CT 12/19/2020, CT chest 01/21/2022 FINDINGS: Lower chest: Trace right pleural effusion is seen. Interstitial thickening is seen with superimposed atelectasis versus consolidation. The pulmonary trunk measures 35 mm in diameter. Liver: Innumerable hypoenhancing hepatic lesions are seen, not well seen on prior exams. Gallbladder and biliary tree: Patient is status post cholecystectomy. No intra- or extrahepatic biliary ductal dilation. Pancreas: Unremarkable, no focal lesions. Spleen: Unremarkable. Adrenals: Unremarkable. Kidneys and ureters: Cysts are seen in the bilateral kidneys. Bladder: Diffuse homogeneous wall thickening is seen. Reproductive organs: Unremarkable. Bowel: Diverticulosis is seen without evidence of diverticulitis. The appendix is normal. Lymph nodes Retroperitoneal: Unremarkable. Pelvic: Unremarkable. Mesenteric: Unremarkable. Peritoneum: Normal. Vessels: Atherosclerotic calcifications are seen. An infrarenal aortic aneurysm measures 46 mm in diameter. Abdominal wall: A fat-containing umbilical hernia is seen. Bones: Degenerative changes in the visualized spine. Grade 3 anterolisthesis is seen of L5-S1 with associated pars defects. Scattered bone islands are seen. IMPRESSION: 1. No acute abnormalities are seen to explain abdominal pain. 2. Innumerable hypoenhancing liver masses are seen concerning for metastatic disease in this patient with known primary lung cancer. No additional metastatic foci are seen. 3. Diverticulosis without diverticulitis. 4. Status post cholecystectomy. ACT 112: Negative or not required by law. Electronically signed by: Guanako Renee M.D. 07/01/2022 7:39 PM Code Status & VTE Plan VTE Prophylaxis Plan VTE Prophylaxis will be ordered: Yes PG Care Time/CCT Total # of Minutes Spent Total Time Spent with Patient: Total time spent is greater than 50% in coordination of care (as documented) at patient's floor/unit and/or counseling patient: Coding Level of Care Code 20173 Initial Inpt Care Lvl 2 Diagnoses Atrial fibrillation with rapid ventricular response I48.91 MINOR (acute kidney injury) N17.9 Diarrhea R19.7 Dehydration E86.0 Liver lesion K76.9 Abnormal LFTs R79.89
[2022-07-02] MEDS ORDERED: ASPIRIN 81 MG ECTAB PO SCH ×2 (09:00)
[2022-07-02] MEDS ORDERED: APIXABAN 2.5 MG TAB PO SCH (09:00)
[2022-07-02] MEDS ORDERED: NON-FORMULARY MEDICATION (Coenzyme Q10 200 mg capsule) PO SCH (09:00)
[2022-07-02] MEDS ORDERED: predniSONE 2.5 MG TAB PO SCH (09:00)
[2022-07-02] MEDS ORDERED: ROSUVASTATIN CALCIUM 20 MG TAB PO SCH (09:00)
[2022-07-02] MEDS ORDERED: ISOSORBIDE MONO EXTENDED REL 60 MG TABCR PO SCH (09:00)
[2022-07-02] MEDS ORDERED: PANTOprazole 40 MG TAB PO SCH (09:00)
[2022-07-02] MEDS ORDERED: METOPROLOL SUCC 50MG EXT REL TAB PO SCH (09:00)
[2022-07-02] MEDS ORDERED: CITALOPRAM 20 MG TAB PO SCH (09:00)
[2022-07-02] MEDS ORDERED: OMEGA-3 (PURIFIED FISH OIL) 1 GM CAP PO SCH (09:00)
[2022-07-02] MEDS ORDERED: VITAMIN B COMPLEX TAB PO SCH (09:00)
[2022-07-02] MEDS ORDERED: ENALAPRIL MALEATE 5 MG TAB PO SCH (09:00)
[2022-07-02] MEDS ORDERED: CEROVITE ADV FORMULA TAB PO SCH (09:00)
[2022-07-02] MEDS ORDERED: guaiFENesin 600 MG TABCR PO SCH (09:00)
[2022-07-02] MEDS ORDERED: CHOLECALCIFEROL 1,000 UNITS 25 MCG TAB PO SCH (09:00)
--- NOTE | 2022-07-02 09:37 | Electrocardiogram Report ---
Test Reason : Blood Pressure : / mmHG Vent. Rate : 120 BPM Atrial Rate : 357 BPM P-R Int : 000 ms QRS Dur : 096 ms QT Int : 348 ms P-R-T Axes : 000 -26 -01 degrees QTc Int : 491 ms Atrial fibrillation with rapid ventricular response Moderate voltage criteria for LVH, may be normal variant Nonspecific ST abnormality Abnormal ECG When compared with ECG of 08-APR-2021 12:04, Atrial fibrillation has replaced Atrial flutter Vent. rate has increased BY 41 BPM Confirmed by Dakota Fischer ([id number]) on 07/02/2022 9:37:03 AM Referred By: REFERRED SELF Confirmed By:Pete Fischer
--- NOTE | 2022-07-02 09:50 | Cardiology Consultation ---
Date of Consultation July 02, 2022 Assessment & Plan (1) Atrial fibrillation with rapid ventricular response: (2) Diarrhea: (3) MINOR (acute kidney injury): (4) Liver lesion: Plan Patient admitted for abdominal pain and diarrhea with poor PO intake of nutrition and liquids for many days. Found to have elevated HR's with chronic afib, likely due to MINOR/dehydration. Continue gentle IV fluids. He is asymptomatic in regards to afib RVR. He has yet to receive his morning metoprolol 100 mg. Await response to medication. when we discussed his home medications, he reports 2 meds were recently stopped - one being his quinapril due to low BP, and he believes the other one started with "M", possibly metoprolol. Continue Eliquis for anticoagulation, 2.5 mg BID given elevated creatinine and age > 80. If needed, could consider future titration of metoprolol vs addition of digoxin pending BP and renal function. Will defer to primary hospitalist and his oncology team regarding further work up of liver lesions, possibly metastatic Lung CA. Case discussed with Dr. Espinosa - will follow. Supervising Physician Co-Signing Physician Notes Supervising Physician Attestation: I have personally performed a history and physical examination on the patient. I agree with the physician cardiovascular physician assistant's findings and plan as documented with the following additions. Subjective: Patient notes abdominal discomfort improved. Tolerating IV fluid resuscitation with normal saline Exam: Cardiovascular: Tachycardic, regular rhythm, no murmurs, no edema Abdomen: No abdominal tenderness on palpation Data: EKG performed 07/01/2022, 1641 and interpreted independently: Atrial fibrillation with rapid ventricular response, ventricular rate 120 bpm, no significant repolarization changes Most recent telemetry, atrial fibrillation 112 bpm Assessment and Plan: Atrial fibrillation with rapid ventricular sponsor in the setting of volume depletion -Patient corroborates the history that he stopped both quinapril and metoprolol recently. -Resume prior dose of metoprolol succinate 100 mg daily -Continue Eliquis 2.5 mg twice daily for stroke prophylaxis DVT prophylaxis: Eliquis 2.5 mg twice daily (anticoagulated for stroke prophylaxis in setting of permanent atrial fibrillation, dose adjusted for age and renal function) Eusebio Espinosa, DO History of Present Illness Reason for Consultation: Afib RVR Requesting Physician: Dr. Callahan Attending Physician: Dr. Francisca History of Present Illness Patient is a 86 year old male known to [facility] cardiology, Dr. Trujillo and Dr. De La Torre. History includes 1. Chronic atrial fibrillation on chronic anticoagulation therapy 2. Peripheral vascular disease status post carotid endarterectomy 3. Hyperlipidemia 4. Abdominal aortic aneurysm followed by [facility] vascular surgery (4.7 x 4.5 cm infrarenal abdominal aortic aneurysm. as measured on PET CT 12/2020) 5. Likely chronic stable angina with ischemic nuclear stress testing suggestive of mid distal LAD disease with patient opted to be treated medically 6. Lung CA with prior radiation treatment Patient admitted after nearly 7 days of nausea, diarrhea, with weakness and dehydration. Found to be dehydrated on admission with MINOR and elevated liver enzymes. CT scan revealed liver lesions, possible METS. EKG demonstrated afib with RVR. Patient with known chronic afib. He reportedly was told to stop Quinapril several weeks ago due to low BP. He believes he may also have stopped his metoprolol. per review of [facility] med list, patient is still taking metoprolol 100 mg daily. Currently in ER, patient feeling better. Able to eat small breakfast. He is unaware of his elevated HR's this morning. He had not yet received his morning medications. BP acceptable. No dizziness. No chest pain or SOB. Allergies Allergy/AdvReac Type Severity Reaction Status Date / Time No Known Allergies Allergy Verified 07/01/22 18:45 Home Medications Medication Instructions Recorded Confirmed Type aspirin 81 mg tablet,delayed 81 mg PO QAM 12/08/19 07/01/22 History release (Adult Low Dose Aspirin) nitroglycerin 0.4 mg sublingual 0.4 mg sublingual Q5M PRN Chest 12/08/19 07/01/22 History tablet Pain rosuvastatin 20 mg tablet (Crestor) 20 mg PO QAM 12/08/19 07/01/22 History isosorbide mononitrate 60 mg 60 mg PO QAM 06/28/20 07/01/22 History tablet,extended release 24 hr furosemide 40 mg tablet 40 mg PO DAILY 12/21/20 07/01/22 History apixaban 2.5 mg tablet (Eliquis) 2.5 mg PO BID 01/03/21 07/01/22 History coenzyme Q10 200 mg capsule 400 mg PO DAILY 01/03/21 07/01/22 History levothyroxine 50 mcg capsule 50 mcg PO DAILY 01/03/21 07/01/22 History metoprolol succinate 100 mg 100 mg PO DAILY 01/03/21 07/01/22 History tablet,extended release 24 hr pantoprazole 40 mg tablet,delayed 40 mg PO DAILY 01/03/21 07/01/22 History release B-complex with vitamin C 1 tab PO DAILY 07/01/22 07/01/22 History cholecalciferol (vitamin D3) 50 50 mcg PO DAILY 07/01/22 07/01/22 History mcg (2,000 unit) capsule (Vitamin D3) citalopram 20 mg tablet (Celexa) 20 mg PO DAILY 07/01/22 07/01/22 History dulaglutide 0.75 mg/0.5 mL 0.75 mg subcut WK 07/01/22 07/01/22 History subcutaneous pen injector (Trulicity) guaifenesin 600 mg tablet, 600 mg PO QAM 07/01/22 07/01/22 History extended release 12 hr omega-3 fatty acids-fish oil 360 1 cap PO DAILY 07/01/22 07/01/22 History mg-1,200 mg capsule prednisone 2.5 mg tablet 2.5 mg PO DAILY 07/01/22 07/01/22 History quinapril 5 mg tablet 5 mg PO DAILY 07/01/22 07/01/22 History vit C 250 mg-vit E 90 mg-zinc 40 1 tab PO AMHS 07/01/22 07/01/22 History mg-copper 1 [id number] capsule (PreserVision AREDS-2) Patient History Medical History Abnormal chest x-ray Allergic rhinitis Chronic atrial fibrillation Chronic kidney disease COPD with emphysema Coronary artery disease Ex-smoker Fall Hemoptysis Hyperlipidemia Hypertension Hypothyroidism ILD (interstitial lung disease) Multiple pulmonary nodules Surgical History H/O arthroscopy of knee Right knee H/O hemorrhoidectomy H/O vasectomy History of carotid endarterectomy Hx of cataract surgery both eyes Hx of cholecystectomy Family History Mother , 82yo Hiatal hernia Myocardial infarction During hospitalization for hiatal hernia surgery Father , 90yo Natural with unknown cause Diabetes Myocardial infarction Brother No problems noted. Brother No problems noted. Brother No problems noted. Sister No problems noted. Sister No problems noted. Sister Cancer Pt believes this was brain cancer Son No problems noted. Daughter No problems noted. Daughter No problems noted. 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; Other Information That Helps Us Care for You: No Feels Safe at Home: Yes Safety Concerns: Feels Safe At This Time caffeine: Yes (2 cups/day) during the past year weight has: remained stable Assistive Devices: Oxygen - Continuous and Walker Review of Systems Review of Systems: All systems reviewed & are unremarkable except as noted in HPI & below Physical Exam Constitutional: WD/WN, vitals as above well nourished; no acute distress Neck: trachea midline, no thyromegaly Respiratory: normal respiratory effort; no labored breathing Auscultation: no crackles, no rales and no rhonchi Cardiovascular: Rate/Rhythm: + tachycardic and + irregularly irregular Heart Sounds: no murmur Vessels: no JVD Extremities: no edema Gastrointestinal (Abdomen): normal bowel sounds, soft, nontender, no hepatosplenomegaly Musculoskeletal: no cyanosis or clubbing, extremities motor strength 5/5 Skin: no rashes, warm and dry Results & Data ([facility]) Vital Signs (Past 12 Hours) Vital Signs Pulse Resp BP Pulse Ox Pulse Ox O2 Del Method O2 Del Method 07/02/22 02:53 112 H 19 113/74 98 Nasal Cannula 07/02/22 01:00 97 Nasal Cannula 07/02/22 01:00 119 H 18 125/80 97 Nasal Cannula 07/01/22 23:00 110 H 18 125/78 97 Nasal Cannula O2 Flow Rate O2 Flow Rate 07/02/22 02:53 2 07/02/22 01:00 2 07/02/22 01:00 2 07/01/22 23:00 2 Laboratory Results Cardiac Enzymes 07/01/22 07/02/22 Range/Units 16:45 10:14 AST 147 H 125 H (13-39) U/L Troponin I High Sens 17.0 (0-20) pg/ml Coagulation 07/01/22 Range/Units 16:45 PT 13.1 H (9.0-12.0) Seconds APTT 31.6 H (21.0-31.0) Seconds CBC 07/01/22 Range/Units 16:45 WBC 7.21 (4.8-10.8) K/ul RBC 3.82 L (4.63-6.08) M/uL Hgb 12.0 L (14.0-18.0) g/dl Hct 35.9 L (40.1-51.0) % Plt Count 230 (130-400) K/uL Neut # (Auto) 4.71 (1.4-6.5) K/uL Lymph # (Auto) 1.43 (1.2-3.4) K/uL Hand # (Auto) 0.86 H (0.24-0.82) K/uL Eos # (Auto) 0.09 (0-0.50) K/uL Baso # (Auto) 0.06 (0-0.2) K/uL Comprehensive Metabolic Panel 07/01/22 07/02/22 Range/Units 16:45 10:14 Sodium 140 140 (136-145) mmol/L Potassium 4.3 4.0 (3.5-5.1) mmol/L Chloride 102 105 (98-107) mmol/L Carbon Dioxide 31 29 (21-32) mmol/L BUN 22 22 (6-23) mg/dl Creatinine 1.62 H 1.49 H (0.6-1.4) mg/dl Glucose 116 H 121 H (70-99(Fasting)) mg/dl Calcium 10.0 9.4 (8.5-10.1) mg/dl AST 147 H 125 H (13-39) U/L ALT 121 H 100 H (7-52) U/L Alkaline Phosphatase 328 H 279 H (34-104) U/L Total Protein 6.2 5.6 L (6.0-8.3) gm/dl Albumin 3.4 3.1 L (3.4-5.0) gm/dl Intake and Output 07/01/22 07/02/22 07/02/22 22:59 06:59 14:59 Intake Total 1000 / 1000 Balance 1000 / 1000 Intake: IV 1000 / 1000 Sodium Chloride 0.9% 500 ml @ 1000 / 1000 999 mls/hr IV .Q31M ONE Rx#: [id number] Other: # Unmeasured Voids 1 Weight 105 kg 105 kg 104.5 kg Weight Measurement Method [facility] Wheel[facility] Patient Weight 07/03/22 06:59 Weight 104.5 kg Diagnostic Findings Telemetry reviewed: Persistent (known/chronic) afib with elevated HR"s ranging 100-120 bpm. (Prior to AM meds) EKG demonstrated: Afib with RVR, no acute changes Medications Administered Current Inpatient Medications Acetaminophen (Acetaminophen 325 Mg Tab) 650 mg PO Q4H PRN PRN Reason: Pain or Fever Stop: 07/31/22 23:50 Apixaban (Apixaban 2.5 Mg Tab) 2.5 mg PO BID VINNIE Stop: 08/01/22 08:59 Last Admin: 07/02/22 10:31 Dose: 2.5 mg Aspirin (Aspirin 81 Mg Ectab) 81 mg PO QAM VINNIE Stop: 07/04/22 08:59 Last Admin: 07/02/22 10:29 Dose: 81 mg Citalopram Hydrobromide (Citalopram 20 Mg Tab) 20 mg PO DAILY VINNIE Stop: 08/01/22 08:59 Last Admin: 07/02/22 10:32 Dose: 20 mg Dextrose (Dextrose 50% 50 Ml Syringe) 25 - 50 ml IV UD PRN; Protocol PRN Reason: Hypoglycemia Protocol Stop: 08/01/22 06:59 Fish Oil (Center Line-3 (Purified Fish Oil) 1 Gm Cap) 1 gm PO DAILY VINNIE Stop: 08/01/22 08:59 Last Admin: 07/02/22 10:30 Dose: 1 gm Glucagon (Glucagon For Inj 1 Mg Vial) 1 mg IM UD PRN; Protocol PRN Reason: Hypoglycemia Protocol Stop: 08/01/22 06:59 Glucose (Glucose 40% Gel 15 Gm Tube) 15 - 30 gm PO UD PRN; Protocol PRN Reason: Hypoglycemia Protocol Stop: 08/01/22 06:59 Glucose (Glucose 10 Tab/Tube) 4 - 8 tab PO UD PRN; Protocol PRN Reason: Hypoglycemia Protocol Stop: 08/01/22 06:59 Guaifenesin (Guaifenesin 600 Mg Tabcr) 600 mg PO QAM [facility] Stop: 08/01/22 08:59 Last Admin: 07/02/22 10:30 Dose: 600 mg Sodium Chloride (Nss 1000ml) 1,000 mls @ 75 mls/hr IV .[id number] [facility] Stop: 07/03/22 01:19 Last Admin: 07/02/22 02:11 Dose: 75 mls/hr Insulin Aspart (Insulin Aspart Per Unit) 0 units SC ACHS [facility] Stop: 08/01/22 07:29 Last Admin: 07/02/22 10:19 Dose: 3 units Isosorbide Mononitrate (Isosorbide Hand Extended Rel 60 Mg Tabcr) [facility] Stop: 08/01/22 08:59 Last Admin: 07/02/22 10:30 Dose: 60 mg Levothyroxine Sodium (Levothyroxine Sodium 50 Mcg Tablet) [facility] Stop: 08/01/22 06:29 Last Admin: 07/02/22 06:18 Dose: 50 mcg Metoprolol Succinate (Metoprolol Succ 50mg Ext Rel Tab) 100 mg PO DAILY [facility] Stop: 08/01/22 08:59 Last Admin: 07/02/22 10:30 Dose: 100 mg Metoprolol Tartrate (Metoprolol Tartrate 1 Mg/Ml Vial) 5 mg IV Q5M PRN PRN Reason: Tachycardia Stop: 08/01/22 09:58 Miscellaneous (Carbohydrates For Hypoglycemia ) 15 - 30 gm PO UD PRN PRN Reason: Hypoglycemia Treatment Stop: 08/01/22 06:59 Multivitamins/Minerals (Cerovite Adv Formula Tab) 1 tab PO DAILY [facility] Stop: 08/01/22 08:59 Last Admin: 07/02/22 10:31 Dose: 1 tab Nitroglycerin (Nitroglycerin Sl 0.4 Mg/Tab Tab) 0.4 mg SL Q5M PRN PRN Reason: Chest Pain Stop: 08/01/22 01:10 Ondansetron HCl (Ondansetron Inj 2 Mg/Ml 2 Ml Vial) 4 mg IV Q6H PRN PRN Reason: Nausea Stop: 07/02/22 19:00 Pantoprazole Sodium (Pantoprazole 40 Mg Tab) 40 mg PO DAILY [facility] Stop: 08/01/22 08:59 Last Admin: 07/02/22 10:31 Dose: 40 mg Prednisone (Prednisone 2.5 Mg Tab) 2.5 mg PO DAILY VINNIE Stop: 08/01/22 08:59 Last Admin: 07/02/22 10:31 Dose: 2.5 mg Rosuvastatin Calcium (Rosuvastatin Calcium 20 Mg Tab) 20 mg PO QAM [facility] Stop: 08/01/22 08:59 Last Admin: 07/02/22 10:31 Dose: 20 mg Vitamin B Complex (Vitamin B Complex Tab) 1 tab PO DAILY [facility] Stop: 08/01/22 08:59 Last Admin: 07/02/22 10:31 Dose: 1 tab Vitamin D (Cholecalciferol 1,000 Units 25 Mcg Tab) 2,000 units PO DAILY VINNIE Stop: 08/01/22 08:59 Last Admin: 07/02/22 10:29 Dose: 2,000 units
[2022-07-02] MEDS ORDERED: METOPROLOL TARTRATE 1 MG/ML VIAL IV PRN (09:59)
[2022-07-02] MEDS: INSULIN ASPART PER UNIT SC SCH ×2 (10:19→14:36)
[2022-07-02 11:07] LABS: Albumin Globulin Ratio 1.2 (0.9-2); Albumin Level 3.1 gm/dl (3.4-5.0); BUN Creatinine Ratio 14.8 (10-20); Bilirubin,Total 1.1 mg/dl (0.2-1.0); Calcium 9.4 mg/dl (8.5-10.1); Creatinine Clr Calc Pharmacy 44.1 ml/min; Est GFR (African American) 49.2 ml/min; Est GFR (Non-African American) 42.5 ml/min; Globulin 2.5 gm/dl (2.5-4.0); Magnesium 2.2 mg/dl (1.7-2.4); Total Protein 5.6 gm/dl (6.0-8.3)
[2022-07-02 16:17] VITALS: BP 106/62; PULSE 114; O2SAT 91
--- NOTE | 2022-07-02 19:04 | Discharge Summary ---
Date of Service July 02, 2022 Admission HPI Per Admitting Provider 86 yr old male with PMHx of htn and hyperlipdemia presents to ED with c/o abd pain and diarrhea . In Ed pt was found to be in a fib and RVR and treated with iv fluids . abd pain reported in the lower quadrant area Admission Exam Per Admitting Provider Constitutional: cooperative ENMT: suple Respiratory: breathsounds heard normally Neurologic: no focal deficits Principal Diagnosis Atrial Fibrillation with RVR Discharge Exam Eyes + anicteric sclerae ENMT external ear and nose normal, oropharynx normal Neck trachea midline, no thyromegaly Respiratory normal respiratory effort, lungs clear to auscultation Cardiovascular Rate/Rhythm: + tachycardic and + irregularly irregular Musculoskeletal Head/Neck/Chest: normocephalic and head atraumatic Skin no rashes, warm and dry Neurologic moves all extremities Psychiatric A+Ox3, euthymic affect Discharge Data Allergies Allergy/AdvReac Type Severity Reaction Status Date / Time No Known Allergies Allergy Verified 07/01/22 18:45 Consultations 07/01/22 20:56 ED Decision to Admit Stat 07/02/22 00:19 Consult Cardiology Routine 07/02/22 09:51 Consult Oncology Routine Ordered Studies 07/01/22 17:33 CT abd pelvis IV con only Stat Hospital Course (1) Atrial fibrillation with rapid ventricular response: Mr. Tomas is an 86 M who was admitted fo symptoms of a gastroenteritis Atrial fibrillation with rapid ventricular response: - known Afib; suspect worsening due to gastroenteritis - TSH WNL. K, Mag and Phos all normal - Cardiology was consulted treated with IV fluids and beta blockade - Although HR was above goal, it was < 120. Patient insisted on going home. Cardiology recommended continue with Metoprolol succinate 100mg qam and adding a 25mg dose in the evening. They will see him in the office for follow up care in 1-2 weeks. MINOR (acute kidney injury): - cr elevated to 1.6 on admission - likely sec to volume depletion continue iv fluids - improved to 1.4 on discharge Diarrhea: - suspect due to viral gastroenteritis - iv fluids were given, symptoms improved Liver lesion: - patient with history of lung cancer, for which he completed a course of radiation. Pet scan in 12/2020 showed no recurrent disease. However, ct abdomen done on admission shows multiple lesions consistent wih metastatic type lesions. I explained to patient he will need to be seen by medical oncology for this new, likley metastatic process. I advised him to remain inpatient, which would enable us to obtain updated chest imaging (last done in 01/2022), a brain MRI and an US guided core biopsy of the liver lesions. However, patient insisted on being sent home so he could "get a good night sleep," and that he would prefer to follow up with oncology as an outpatient. I counseled him there may be a delay in arrange outpatient follow up, imaging and core biopsy, and he expressed understanding. will defer oncology consult to am team as pt also has h/o lung cancer in past Abnormal LFTs: - AST 147 --> 125 - ALT 121 -->100 - Alk phos 328 --> 279 - cholestatic pattern - may be due to the above lesions Total Time Total Time Spent Total Time Spent (In Minutes): 45 Total Time Includes: Examination of the Patient, Discharge Planning and Communication With Other Providers Discharge Plan Discharge Items Patient Disposition: Personal Group Home Reason For Visit: A FIB WITH RVR Discharge Diagnosis: Atrial Fibrillation with RVR Activity: Resume your previous activity Non-emergency contact: Primary Care Provider, Instructional Resource Teacher and Oncologist Call non-emergency contact if: your symptoms worsen Follow-up/Referrals: Eusebio Espinosa DO [Instructional Resource Teacher] - Jolanta Khan [Primary Care Provider] - Josselin Dick MD [Physician] - Diet: Regular Addtl Attending Provider Instructions: You were hospitalized at [facility] for abdominal pain and diarrhea. Fortunately, these symptoms resolved while under our care. They were presumably due to a viral gastroenteritis. We did a cat scan of your abdomen while you were here, and it showed evidence of new lesions in your liver. These are concerning for possible cancer. We advised you to remain in the hospital to pursue chest imaging and brain imaging (to assess for any additional metastatic sites), as well as to have these liver lesions biopsied - however you declined, requesting to be discharged home. You will need to follow up with Oncology as an outpatient. They will arrange a liver biopsy and an updated PET scan as an outpatient. You will need to hold your Eliquis 48 hours in advance of the biopsy. Next, your heart rate was elevated while in our hospital. This was probably due to your gastrointestinal illness. We recommend you continue to take metoprolol succinate 100mg each morning - and ALSO start metoprolol succinate 25mg at night for additional heart rate control. Cardiology will be reaching out to you to schedule an in office follow up in 1-2 weeks. Pending Studies at Discharge: No Stand-Alone Forms: My [employer] Smoking Cessation Skilled Items Patient informed of condition?: Yes DNR: No Discharge Level of Care: Other Communicable Disease: No Discharge Prognosis: Stable Lines: None Urinary Catheter: No Medications and DC Order Prescriptions: New metoprolol succinate 25 mg tablet extended release 24 hr 25 mg PO DAILY Qty: 30 0RF Rx Instructions: Please take 1 tablet at night. Continued Eliquis 2.5 mg tablet 2.5 mg PO BID Rx Instructions: SELF ADMINISTERED pantoprazole 40 mg tablet,delayed release (DR/EC) 40 mg PO DAILY Rx Instructions: SELF ADMINISTERED levothyroxine 50 mcg capsule 50 mcg PO DAILY Rx Instructions: SELF ADMINISTERED metoprolol succinate 100 mg tablet extended release 24 hr 100 mg PO DAILY Rx Instructions: SELF ADMINISTERED coenzyme Q10 200 mg capsule 400 mg PO DAILY Rx Instructions: SELF ADMINISTERED furosemide 40 mg tablet 40 mg PO DAILY Rx Instructions: SELF ADMINISTERED aspirin [Adult Low Dose Aspirin] 81 mg tablet,delayed release (DR/EC) 81 mg PO QAM Rx Instructions: SELF ADMINISTERED nitroglycerin 0.4 mg tablet, sublingual 0.4 mg SL Q5M PRN (Reason: Chest Pain) rosuvastatin [Crestor] 20 mg tablet 20 mg PO QAM Rx Instructions: SELF ADMINISTERED isosorbide mononitrate 60 mg tablet extended release 24 hr 60 mg PO QAM Rx Instructions: SELF ADMINISTERED citalopram [Celexa] 20 mg Tablet 20 mg PO DAILY Rx Instructions: SELF ADMINISTERED prednisone 2.5 mg Tablet 2.5 mg PO DAILY Rx Instructions: SELF ADMINISTERED quinapril 5 mg tablet 5 mg PO DAILY Rx Instructions: SELF ADMINISTERED B-complex with vitamin C Tablet 1 tab PO DAILY Rx Instructions: SELF ADMINISTERED omega-3 fatty acids-fish oil 360-1,200 mg Capsule 1 cap PO DAILY Rx Instructions: SELF ADMINISTERED cholecalciferol (vitamin D3) [Vitamin D3] 50 mcg (2,000 unit) Capsule 50 mcg PO DAILY Rx Instructions: SELF ADMINISTERED PreserVision AREDS-2 250-90-40-1 mg Capsule 1 tab PO AMHS Rx Instructions: SELF ADMINISTERED guaifenesin 600 mg Tablet Extended Release 12hr 600 mg PO QAM Rx Instructions: SELF ADMINISTERED Trulicity 0.75 mg/0.5 mL pen injector 0.75 mg SUBCUT WK Rx Instructions: SELF ADMINISTERED Discharge Orders: Discharge Order (Routine); Ordered 07/02/22 Ordered By: Althea Escalera Admission Data Admit Date/Time: 07/01/22 23:52 Attending Provider: Althea Escalera Admit Provider: Alfonso Callahan Primary Care Provider: Jolanta Khan Other Providers: Alfonso Callahan ; Eusebio Espinosa ; Josselin Dick Other Interventions: Discharge Summary Assessment (RN) Last Done: 07/02/22 16:32 Coding Level of Care Code D/C DAY MANAGEMENT >30 MINS Diagnoses Atrial fibrillation with rapid ventricular response I48.91
== END 2022-07-02 16:32 | disposition home or self-care (01) ==
LOC: ED 15:57 → SUATTDRO 23:52 → EDINP 23:52 → INTOOBSV 23:52 → EDINP 07-02 01:12
DX: R19.7 Diarrhea, unspecified; Z79.890 Hormone replacement therapy; R94.5 Abnormal results of liver function studies; Z79.82 Long term (current) use of aspirin; Z79.01 Long term (current) use of anticoagulants; Z82.49 Family history of ischemic heart disease and other diseases of the circulatory system; Z79.899 Other long term (current) drug therapy; K76.9 Liver disease, unspecified; I48.20 Chronic atrial fibrillation, unspecified; N17.9 Acute kidney failure, unspecified